=== PATIENT | female | born 1945 | race Caucasian/White ===

== ENCOUNTER 2016-12-11 13:09 | Emergency (ER) | payer MEDICARE ==
[~2016-12-11] VITALS: Ht 157.5 cm; Wt 120.2 kg
--- NOTE | 2016-12-11 13:20 | NUR ---
MARLEY FROM HOME C/O CHRONIC LOWER BACK PAIN. NOTED ELEVATED BP. TOOK PAIN MEDS AT HOME WITH NO RELIEF. AT . SAFETY AND COMFORT MEASURES PROVIDED. AWAITING FOR MD COBIAN. WILL MONITOR.
--- NOTE | 2016-12-11 14:20 | NUR ---
DR. CERVANTES AT FOR CATHLEENAL.
[2016-12-11] MEDS ORDERED: MORPHINE SULFATE INJ 2 MG/ML DISP.SYRIN IV ONE (15:00)
[2016-12-11] MEDS ORDERED: ONDANSETRON HCL/PF - ER 4 MG/2 ML VIAL IV ONE (15:00)
[2016-12-11] MEDS ORDERED: ONDANSETRON HCL/PF 4 MG/2 ML VIAL ONE ×2 (15:06→19:37)
[2016-12-11] MEDS ORDERED: MORPHINE SULFATE INJ 4 MG/ML DISP.SYRIN ONE (15:06)
--- NOTE | 2016-12-11 15:20 | NUR ---
IV ACCESS STARTED. INJECTOR ASSEMBLER AT FOR BLOOD DRAW. MEDICATED ORDERED.
[2016-12-11 15:32] LABS: BASOPHILS % (AUTO) 0.5 % (0.0-2.0); EOSINOPHILS % (AUTO) 0.5 % (0.0-6.0); HEMATOCRIT 41 % (33-45); HEMOGLOBIN 13.2 g/dL (11.5-14.8); LYMPHOCYTES # (AUTO) 0.9 /CMM (0.8-4.8); LYMPHOCYTES % (AUTO) 9.7 % (20.0-44.0); MEAN CORPUSCULAR HEMOGLOBIN 28 PG (26.0-33.0); MEAN CORPUSCULAR HGB CONC 33 g/dl (31.0-36.0); MEAN CORPUSCULAR VOLUME 87 fL (82-100); MONOCYTES # (AUTO) 0.3 /CMM (0.1-1.30); MONOCYTES % (AUTO) 2.9 % (2.0-12.0); NEUTROPHILS # (AUTO) 8.4 /CMM (1.8-8.9); NEUTROPHILS % (AUTO) 86.4 % (43.0-81.0); PLATELET COUNT (AUTO) 306 /CMM (150-450); RDW COEFFICIENT OF VARIATION 14.9 (11.5-15.0); RED BLOOD CELL COUNT(AUTO) 4.67 MIL/uL (4.0-5.2); WHITE BLOOD COUNT (AUTO) 9.6 K/uL (4.3-11.0)
[2016-12-11 15:44] LABS: CALCIUM, SERUM 9.9 mg/dL (8.5-10.1); CREATININE 0.8 mg/dL (0.6-1.3); POTASSIUM 4.1 mmol/L (3.5-5.1)
[2016-12-11 15:59] LABS: ALBUMIN 3.5 g/dL (3.4-5.0); BILIRUBIN,DIRECT 0.1 mg/dL (0.0-0.2); BILIRUBIN,TOTAL 0.3 mg/dL (0.2-1.0); TOTAL PROTEIN, SERUM 8.6 g/dL (6.4-8.2)
[2016-12-11] MEDS ORDERED: HYDROMORPHONE 1 MG/1 ML DISP.SYRIN ONE (16:26)
[2016-12-11] MEDS ORDERED: HYDROMORPHONE 1 MG/1 ML DISP.SYRIN IV ONE (16:30)
[2016-12-11 17:19] LABS: APPEARANCE,URINE Clear (CLEAR); BILIRUBIN,URINE Negative (NEGATIVE); BLOOD, URINE Trace-intact Ery/uL (NEGATIVE); COLOR,URINE Yellow (YELLOW); KETONES,URINE 40 (NEGATIVE); LEUKOCYTE ESTERASE ,URINE Negative (NEGATIVE); NITRITE, URINE Negative (NEGATIVE); PH,URINE 6.5 (5.0-8.0); PROTEIN,URINE 30 mg/dl (NEGATIVE); UGLUCOSE 500 MG/DL mg/dL (NEGATIVE); UROBILINOGEN,URINE 0.2 EU/dL (0.2)
[2016-12-11 17:21] LABS: BACTERIA,URINE Rare /HPF (None Seen); SQUAMOUS EPITHELIAL CELL,UR Few /HPF (None Seen); WBC,URINE NONE SEEN /HPF (0-3)
--- NOTE | 2016-12-11 17:29 | NUR ---
AT TO DISCUSS POC.
--- NOTE | 2016-12-11 17:50 | NUR ---
Patient discharged to home in stable condition. Written and verbal after care instructions given. PatientFAMILY verbalizes understanding of instruction.
--- NOTE | 2016-12-11 18:15 | NUR ---
PT REQUESTS AMBULANCE TO GO HOME. MADE AWARE OF AMBULANCE ETA OF 3.5 HOURS. OFFERED TO BE ASSISTED TO THE CAR BUT PT REFUSES, INSISTING THAT SHE IS HAVING A HARD TIME WALKING. OFFERED TO EB ASSISTED TO TRY TO WALK, STILL REFUSED. MADE AWARE.
--- NOTE | 2016-12-11 18:40 | NUR ---
BRIAN BEATTY, PT'S CELL PHONE NUMBER-
--- NOTE | 2016-12-11 19:27 | NUR ---
REPORT GIVEN TO AMBULANZ STAFF FOR TRANSPORT TO HOME.
--- NOTE | 2016-12-11 19:30 | NUR ---
PT STILL COMPLAINS OF PAIN- MD AWARE. NEW ORDERS CARRIED OUT.
[2016-12-11] MEDS ORDERED: MORPHINE SULFATE INJ 2 MG/ML DISP.SYRIN ONE (19:37)
--- NOTE | 2016-12-11 19:49 | NUR ---
IV removed. Catheter intact and site benign. Pressure and 4x4 applied to site. No bleeding noted.
--- NOTE | 2016-12-11 20:12 | NUR ---
STILL WAITING FOR MORPHINE AND ZOFRAN ORDERS TO BE ENDTERED ADMINISTERED BUT NOTED THAT IT IS NOT POPULATING ON THE MED LIST.
[2016-12-11 20:14] VITALS: BP 172/89
== END 2016-12-11 20:15 | disposition home or self-care (01) ==
LOC: ER 13:13
DX: G89.29 Other chronic pain (principal); M54.5 Low back pain; I10 Essential (primary) hypertension; E78.5 Hyperlipidemia, unspecified; E11.9 Type 2 diabetes mellitus without complications
CPT/HCPCS: 36415; 51701; 80048; 80076; 81001; 83690; 85025; 96374; 96375; 99284; A4606; J1170; J2270 ×2; J2405 ×2; 81000-TC; Z7610

== ENCOUNTER 2017-04-08 19:32 | Inpatient (IN) | payer MEDICARE ==
[~2017-04-08] VITALS: Ht 170.2 cm; Wt 151.0 kg
--- NOTE | 2017-04-08 19:44 | NUR ---
TO BED 5 BIB PARAMEDICS WITH FAMILY MEMBERS AT BEDSIDE C/O WORSENING SOB. PT DX'D WITH PNA TODAY. PT ALTERED, SOMNOLENT WITH POOR BREATHING EFFORT AND SHALLOW BREATHING, PT DIAPHORETIC, UNABLE TO FOLLOW SIMPLE COMMANDS. ER MD AT BEDSIDE TO EVAL PT WITH ORDERS RECEIVED. STARTED SL 18G TO L HAND, BLOOD DRAWN AND SENT TO LAB. RT AT BEDSIDE TO EVAL PT.
--- NOTE | 2017-04-08 19:46 | NUR ---
ER MD ORDER PT PREP PT FOR INTUBATION. RT AWARE.
[2017-04-08] MEDS ORDERED: NALOXONE PREFILLED SYRINGE 2 MG/2 ML SYRINGE ONE (19:54)
--- NOTE | 2017-04-08 19:55 | NUR ---
ER MD AT BEDSIDE FOR INTUBATION, RT, RN LIANNA, RN BUBBA, EMT AVELINA, EMT RENEE AT BEDSIDE
[2017-04-08 20:00] LABS: BASOPHILS # (AUTO) 0.1 /CMM (0.0-0.2); BASOPHILS % (AUTO) 0.8 % (0.0-2.0); EOSINOPHILS # (AUTO) 0.3 /CMM (0.0-0.7); EOSINOPHILS % (AUTO) 2.2 % (0.0-6.0); HEMATOCRIT 37 % (33-45); HEMOGLOBIN 12.5 g/dL (11.5-14.8); LYMPHOCYTES % (AUTO) 20.9 % (20.0-44.0); MEAN CORPUSCULAR HEMOGLOBIN 29 PG (26.0-33.0); MEAN CORPUSCULAR HGB CONC 33 g/dl (31.0-36.0); MEAN CORPUSCULAR VOLUME 88 fL (82-100); MONOCYTES # (AUTO) 0.7 /CMM (0.1-1.30); MONOCYTES % (AUTO) 4.8 % (2.0-12.0); NEUTROPHILS # (AUTO) 10.2 /CMM (1.8-8.9); NEUTROPHILS % (AUTO) 71.3 % (43.0-81.0); PLATELET COUNT (AUTO) 330 /CMM (150-450); RED BLOOD CELL COUNT(AUTO) 4.27 MIL/uL (4.0-5.2); WHITE BLOOD COUNT (AUTO) 14.3 K/uL (4.3-11.0)
--- NOTE | 2017-04-08 20:00 | NUR ---
PT INTUBATED BY MD CERVANTES, 7.5 ANGUILLAN, 22 AT THE LIP, VENT SETTINGS ARE TIDAL VOLUME 500, O2 100% RATE OF 18, PEEP OF 10, WILL CONTINUE TO MONITOR.
[2017-04-08] MEDS ORDERED: PROPOFOL 100 ML ONE ×2 (20:03→22:04)
[2017-04-08 20:19] VITALS: BP 158/94
--- NOTE | 2017-04-08 20:20 | NUR ---
NG TUBE INSERTED PER CERVANTES ORDER
--- NOTE | 2017-04-08 20:35 | NUR ---
SALAS PLACED PER MD ORDER, URINE COLLECTED AND SENT TO LAB
[2017-04-08 20:50] LABS: CALCIUM, SERUM 9.1 mg/dL (8.5-10.1); CARBON DIOXIDE 25 mmol/L (21-32); CHLORIDE 101 mmol/L (98-107); CREATININE 0.8 mg/dL (0.6-1.3); GLUCOSE 290 mg/dL (74-106); POTASSIUM 3.6 mmol/L (3.5-5.1); SODIUM SERUM 136 mmol/L (136-145); UREA NITROGEN, BLOOD 14 mg/dL (7-18)
[2017-04-08 20:59] LABS: ALANINE AMINOTRANSFERASE 32 U/L (12-78); ALBUMIN 3.3 g/dL (3.4-5.0); ALKALINE PHOSPHATASE 92 U/L (46-116); ASPARTATE AMINOTRANSFERASE 39 U/L (15-37); BILIRUBIN,DIRECT 0.1 mg/dL (0.0-0.2); BILIRUBIN,TOTAL 0.2 mg/dL (0.2-1.0); TOTAL PROTEIN, SERUM 8.2 g/dL (6.4-8.2)
[2017-04-08] MEDS ORDERED: VANCOMYCIN 1 GM in IV D5W 250 ML IV ONE (21:00)
[2017-04-08] MEDS ORDERED: IV NS 0.9% 1,000 ML BAG IV ONE (21:00)
[2017-04-08] MEDS ORDERED: CEFEPIME 1 GM in IV D5W 50 ML IV ONE (21:00)
[2017-04-08] MEDS ORDERED: ROCURONIUM BROMIDE 50 MG/5 ML ONE (21:09)
[2017-04-08 21:19] LABS: TROPONIN I 0.028 ng/mL (0.00-0.056)
[2017-04-08 21:29] LABS: INR 0.95 (0.85-1.15)
[2017-04-08] MEDS ORDERED: ROCURONIUM BROMIDE 50 MG/5 ML IV ONE ×2 (21:30)
[2017-04-08] MEDS ORDERED: ETOMIDATE 2 MG/ML VIAL IV ONE (21:30)
[2017-04-08] MEDS ORDERED: PROPOFOL 100 ML IV PRN ×2 (21:30→23:30)
[2017-04-08] MEDS ORDERED: CT SWABBABLE VALVE TRANS SET 1 EA INFUS.SET MC ONE (21:40)
[2017-04-08] MEDS ORDERED: IOHEXOL-350 100 ML VIAL IV ONE (21:40)
[2017-04-08] MEDS ORDERED: IV NS 0.9% 500 ML IV ONE (21:41)
--- NOTE | 2017-04-08 22:10 | NUR ---
BACK FROM CT
[2017-04-08 22:14] LABS: APPEARANCE,URINE CLEAR (CLEAR); BILIRUBIN,URINE NEGATIVE (NEGATIVE); BLOOD, URINE 1+ Ery/uL (NEGATIVE); COLOR,URINE YELLOW (YELLOW); KETONES,URINE TRACE (NEGATIVE); LEUKOCYTE ESTERASE ,URINE NEGATIVE (NEGATIVE); NITRITE, URINE NEGATIVE (NEGATIVE); PH,URINE 6.5 (5.0-8.0); PROTEIN,URINE 2+ mg/dl (NEGATIVE); UGLUCOSE 3+ mg/dL (NEGATIVE); UROBILINOGEN,URINE 0.2 EU/dL (0.2)
[2017-04-08] MEDS ORDERED: CEFEPIME 1 GM VIAL ONE (22:25)
[2017-04-08 22:29] LABS: ABG BASE EXCESS -4.3 mmol/L; ABG OXYGEN SATURATION 98.6 % (92.0-98.5); ABG PCO2 55.3 mmHg (35.0-45.0); ABG PH 7.245 (7.350-7.450); ABG PO2 196.7 mmHg (75.0-100.0); COHb 0.2 % (0.5-1.5); MetHb 0.7 % (0.0-1.5); O2Hb 97.7 % (94.0-97.0); PEEP,BG 10 cm H2O; SITE, ABG Right Radial; VENT MODE, BG A/C 18 500 100 +10; VT, ABG 500 mL
--- NOTE | 2017-04-08 22:48 | NUR ---
RN NOTES RECEIVED REPORT FROM PUBLIC SERVICE OFFICERBEATRICE DSOUZA
[2017-04-08 22:52] LABS: BACTERIA,URINE None seen /HPF (None Seen); SQUAMOUS EPITHELIAL CELL,UR Few /HPF (None Seen); WBC,URINE 0-2 /HPF (0-3)
[2017-04-08] MEDS ORDERED: VANCOMYCIN 1 GM VIAL ONE (22:52)
[2017-04-08] MEDS ORDERED: DEXTROSE 50%-WATER 50 ML DISP.SYRIN IV PRN (23:00)
--- NOTE | 2017-04-08 23:00 | NUR ---
RN NOTES PT ARRIVED FROM ER VIA GURNEY. SEDATED ON 60MCG/KG/MIN OF DIPRIVAN. INTUBATED AND ON VENT WITH SETTINGS AC 18, TV 500, FIO2 100%, PEEP 10, ETT 7.5/22@LIP, SATURATING WELL, NO S/S OF RESP DISTRESS. PT IS SINUS TACH ON THE MONITOR, HR 120'S. SKIN CHECKED, PICS TAKEN AND FILED. PT HAS A RIGHT NARE NGT CLAMPED, PLACEMENT VERIFIED VIA AUSCULTATION. SALAS CATH INTACT. LEFT HAND 18G AND RIGHT AC 18G WITH VANCO 1G RUNNING, BOTH LINES FLUHSED AND PATENT, NO S/S OF INFILTRATION/INFECTION, DRESSING CDI. BED LOW AND LOCKED, SIDERAILS UP, BILATERAL SOFT WRIST RESTRAINTS IN PLACE FOR SAFETY, BED ALARM ON. WILL MONITOR
[2017-04-08 23:05] VITALS: BP 126/70
[2017-04-08 23:15] VITALS: BP 126/70
[2017-04-08 23:30] VITALS: BP 150/80
[2017-04-08] MEDS ORDERED: ALBUTEROL FS 2.5 MG/0.5 ML VIAL.NEB NEB PRN (23:30)
[2017-04-08] MEDS ORDERED: NOREPINEPHRINE 16 MG in IV D5W 500 ML IV PRN (23:30)
[2017-04-08] MEDS ORDERED: IPRATROPIUM NEB FS 0.5 MG/2.5 ML AMPUL.NEB NEB PRN (23:30)
[2017-04-08] MEDS ORDERED: PIPERACILLIN /TAZOBACTAM 3.375 G VIAL IV ONE (23:36)
[2017-04-08] MEDS ORDERED: ENOXAPARIN SODIUM 100 MG/ML DISP.SYRIN SQ ONE (23:36)
[2017-04-08] MEDS ORDERED: ENOXAPARIN SODIUM 30 MG/0.3 ML DISP.SYRIN ONE (23:36)
[2017-04-08 23:45] VITALS: BP 132/71
[2017-04-08] MEDS: IV NS 0.9% 1,000 ML IV PRN (23:47)
[2017-04-08] MEDS: PIPERACILLIN /TAZOBACTAM 3.375 G in IV D5W 100 ML IV SCH (23:48)
[2017-04-08] MEDS: BLOOD SUGAR DIAGNOSTIC 1 EACH STRIP IN SCH (23:48)
--- NOTE | 2017-04-08 23:53 | NUR ---
RN NOTES CALLED DR PAL TO INFORM HIM OF ABG RESULTS S/P INTUBATION. PER MD, LOWER FIO2 TO 70% AND REPEAT ABG @ 0800 TOMORROW
[2017-04-08 23:56] VITALS: BP 132/71
[2017-04-09] VITALS (39 sets, daily range): BP systolic 98–161; BP diastolic 44–94
[2017-04-09] MEDS ORDERED: PHENYLEPHRINE 80 MG in IV NS 0.9% 250 ML IV PRN ×2
[2017-04-09] MEDS ORDERED: ENOXAPARIN SODIUM 60 MG/0.6 ML DISP.SYRIN SQ SCH
[2017-04-09] MEDS: PROPOFOL 100 ML IV PRN ×11 (00:32→23:20)
[2017-04-09] MEDS: ALBUTEROL FS 2.5 MG/0.5 ML VIAL.NEB NEB SCH ×4 (00:44→19:09)
[2017-04-09] MEDS: IPRATROPIUM NEB FS 0.5 MG/2.5 ML AMPUL.NEB NEB SCH ×4 (00:44→19:09)
[2017-04-09] MEDS ORDERED: GABA-534 PO (01:49)
[2017-04-09] MEDS ORDERED: TRAM50TA2 PO (01:49)
[2017-04-09] MEDS ORDERED: ATOR20TA PO (01:49)
[2017-04-09] MEDS ORDERED: LEVO137T24 PO (01:49)
[2017-04-09] MEDS ORDERED: ESOM40CA PO (01:49)
[2017-04-09] MEDS ORDERED: LOSA1TAB36 PO (01:49)
[2017-04-09] MEDS ORDERED: PIPERACILLIN /TAZOBACTAM 3.375 G VIAL IV ONE (04:55)
[2017-04-09] MEDS: BLOOD SUGAR DIAGNOSTIC 1 EACH STRIP IN SCH ×6 (04:59→20:03)
[2017-04-09] MEDS: PIPERACILLIN /TAZOBACTAM 3.375 G in IV D5W 100 ML IV SCH (05:00)
[2017-04-09] MEDS: INSULIN REGULAR, HUMAN 100 UNIT/ML 3 ML VIAL SQ PRN ×6 (05:01→20:20)
[2017-04-09 05:17] LABS: BASOPHILS % (AUTO) 0.2 % (0.0-2.0); EOSINOPHILS % (AUTO) 0.2 % (0.0-6.0); HEMATOCRIT 35 % (33-45); HEMOGLOBIN 11.8 g/dL (11.5-14.8); LYMPHOCYTES # (AUTO) 0.6 /CMM (0.8-4.8); MEAN CORPUSCULAR HEMOGLOBIN 30 PG (26.0-33.0); MEAN CORPUSCULAR HGB CONC 34 g/dl (31.0-36.0); MEAN CORPUSCULAR VOLUME 89 fL (82-100); MONOCYTES # (AUTO) 0.9 /CMM (0.1-1.30); MONOCYTES % (AUTO) 7.8 % (2.0-12.0); NEUTROPHILS # (AUTO) 9.7 /CMM (1.8-8.9); NEUTROPHILS % (AUTO) 86.8 % (43.0-81.0); PLATELET COUNT (AUTO) 216 /CMM (150-450); RDW COEFFICIENT OF VARIATION 14.8 (11.5-15.0); RED BLOOD CELL COUNT(AUTO) 3.94 MIL/uL (4.0-5.2); WHITE BLOOD COUNT (AUTO) 11.1 K/uL (4.3-11.0)
--- NOTE | 2017-04-09 05:17 | NUR ---
PT REC'D ORALLY INTUBATED WITH 7.5 @ 25 ON THE LIP. PT ON MECH VENT WITH NOTED SETTINGS, ALARMS ARE SET AND FUNCTIONAL. NO DISTRESS NOTED AT THIS TIME. B/S BILATERALLY EQUAL. SX'D SMALL AMT. OF WHITE/YELLOW SECRETIONS, PT. REMAINS STABLE. AMBU BAG AT BEDSIDE. VENT PLUGGED INTO RED OUTLET. WILL CONTINUE TO MONITOR. Addendum: 04/09/17 at 0521 by ELVER DESOUZA RT Amended: Links added.
[2017-04-09 05:48] LABS: CALCIUM, SERUM 8.7 mg/dL (8.5-10.1); CREATININE 0.7 mg/dL (0.6-1.3); POTASSIUM 4.7 mmol/L (3.5-5.1)
[2017-04-09] MEDS: ACETAMINOPHEN 650 MG/20.3 ML UDC NG PRN ×3 (05:49→21:54)
[2017-04-09 06:10] LABS: TROPONIN I 0.489 ng/mL (0.00-0.056)
--- NOTE | 2017-04-09 06:30 | NUR ---
RN CLOSING NOTES PT REMAINS STABLE OF THE MOMENT. ALL DUE MEDS GIVEN, AM CARE PROVIDED. WILL ENDORSE NEELIMA TO AM RN
--- NOTE | 2017-04-09 07:45 | NUR ---
ICU/RN - Initial Notes Received pt sedated, orally intubated to mechanical ventilator with settings as ordered. On tele reading ST 120s. NGT patent and intact, kept clamped, NPO as ordered. IVF infusing well. Arellano catheter intact draining urine to gravity. Pt noted to be afebrile with temp 102.2F. Pt recently received Tylenol. Cooling measures in place. Safety and comfort measures in place. Will continue to monitor pt closely.
[2017-04-09] MEDS ORDERED: ETOMIDATE 2 MG/ML VIAL IV ONE (08:04)
[2017-04-09] MEDS ORDERED: FEE PK DOSING 1 MIN EA MC ONE (08:05)
[2017-04-09] MEDS: ASPIRIN 81 MG TAB.CHEW PO SCH (08:11)
[2017-04-09] MEDS: PANTOPRAZOLE 40 MG VIAL IV SCH (08:11)
[2017-04-09 08:29] LABS: MAGNESIUM 1.5 mg/dL (1.8-2.4)
--- NOTE | 2017-04-09 08:30 | NUR ---
ICU/RN - Notes Diprivan gtt titrated down for sedation vacation. Pt opens eyes and able to follows commands. Pt placed back on sedation to ensure comfort while intubated, as pt is gagging biting down ET tube, and as there are no plans for mechanical ventilator weaning today.
[2017-04-09 08:32] LABS: THYROID STIMULATING HORMONE 0.732 uIU/mL (0.358-3.74)
--- NOTE | 2017-04-09 08:47 | NUR ---
ekg results reported to patient's nurse (Tyree).
[2017-04-09 09:26] LABS: ABG BASE EXCESS 0.3 mmol/L; ABG OXYGEN SATURATION 98.3 % (92.0-98.5); ABG PCO2 45.3 mmHg (35.0-45.0); ABG PH 7.374 (7.350-7.450); ABG PO2 144.3 mmHg (75.0-100.0); AaDO2 306.1 mmHg; MetHb 0.6 % (0.0-1.5); O2Hb 97.7 % (94.0-97.0); PEEP,BG 10 cm H2O; SITE, ABG Right Radial; VT, ABG 500 mL
[2017-04-09] MEDS: IV NS 0.9% 1,000 ML IV PRN ×2 (10:19→21:24)
[2017-04-09] MEDS: VANCOMYCIN 1 GM in IV D5W 250 ML IV SCH ×2 (10:23→22:13)
[2017-04-09] MEDS: Magnesium 1GM/D5W 100ML PREMIX 100 ML IV SCH ×2 (11:19→12:22)
[2017-04-09] MEDS: PIPERACILLIN /TAZOBACTAM 3.375 G in IV NS 0.9% 50 ML IV SCH ×3 (11:41→23:20)
--- NOTE | 2017-04-09 12:15 | NUR ---
ICU/RN - Notes Pt's family at bedside, updates provided.
[2017-04-09] MEDS ORDERED: TRAMADOL HCL 50 MG TABLET PO PRN (13:00)
[2017-04-09] MEDS: GABAPENTIN 300 MG CAPSULE PO SCH ×2 (13:02→16:11)
[2017-04-09] MEDS: LEVOTHYROXINE SODIUM 137 MCG TABLET PO SCH (13:38)
--- NOTE | 2017-04-09 16:00 | NUR ---
ICU/RN - Notes Pt continues to be febrile with temp 101F. Cooling measures in place. Dr Membreno made aware.
[2017-04-09] MEDS ORDERED: GLYTROL 1,000 ML BAG GT PRN (16:30)
--- NOTE | 2017-04-09 18:00 | NUR ---
ICU/RN - Notes Tube feeding started as ordered, will monitor for residuals. Temperature improved at 99.8F
--- NOTE | 2017-04-09 19:10 | NUR ---
RN INITIAL NOTES RECEIVED PT SEDATED ON BED WITH DIPRIVAN @ 60MCG/KG/MIN. INTUBATED AND ON VENT WITH SETTINGS AC 18, TV 500, FIO2 40%, PEEP 10, SATURATING WELL, NO S/S OF RESP DISTRESS. CURRENTLY SR ON THE MONITOR, HR 80'S. RIGHT NARE NGT ON GLYTROL FEEDING @ 30MLS/HR, NO RESIDUALS, TOLERATING WELL. SALAS CATH INTACT. LEFT HAND 18G, RIGHT AC 18G, AND LEFT UPPER ARM MIDLINE WITH NS @ 100MLS/HR, ALL FLUSHED AND PATENT, NO S/S OF INFILTRATION/INFECTION, DRESSINGS CDI. BED LOW AND LOCKED, SIDERAILS UP, BED ALARM ON. WILL CONTINUE TO MONITOR
[2017-04-09] MEDS: ENOXAPARIN SODIUM 40 MG/0.4 ML DISP.SYRIN SQ SCH (20:20)
--- NOTE | 2017-04-09 21:20 | NUR ---
PT RECEIVED ON VENT VIA CHARTED SETTINGS AND ROUTE. ALARMS ARE SET AND FUNCTIONAL. DISCONNECT ALARMS CHECKED. PT TOLERATING VENT SETTINGS. AMBU BAG AT THE BEDSIDE. VENT PLUGGED INTO RED OUTLET. Addendum: 04/09/17 at 2121 by YARIEL TITUS RT Amended: Links added.
[2017-04-10] VITALS (37 sets, daily range): BP systolic 88–160; BP diastolic 45–79
[2017-04-10] MEDS: BLOOD SUGAR DIAGNOSTIC 1 EACH STRIP IN SCH ×6 (00:51→20:53)
[2017-04-10] MEDS: INSULIN REGULAR, HUMAN 100 UNIT/ML 3 ML VIAL SQ PRN ×6 (00:52→20:52)
[2017-04-10] MEDS: PROPOFOL 100 ML IV PRN ×10 (01:43→21:34)
[2017-04-10] MEDS: IPRATROPIUM NEB FS 0.5 MG/2.5 ML AMPUL.NEB NEB SCH ×4 (01:49→19:31)
[2017-04-10] MEDS: ALBUTEROL FS 2.5 MG/0.5 ML VIAL.NEB NEB SCH ×4 (01:49→19:31)
[2017-04-10] MEDS: PIPERACILLIN /TAZOBACTAM 3.375 G in IV NS 0.9% 50 ML IV SCH ×4 (05:01→23:15)
[2017-04-10] MEDS: ACETAMINOPHEN 650 MG/20.3 ML UDC NG PRN ×2 (05:01→17:38)
[2017-04-10 05:08] LABS: BASOPHILS % (AUTO) 0.2 % (0.0-2.0); EOSINOPHILS % (AUTO) 0.4 % (0.0-6.0); HEMATOCRIT 30 % (33-45); HEMOGLOBIN 10.4 g/dL (11.5-14.8); LYMPHOCYTES # (AUTO) 0.9 /CMM (0.8-4.8); LYMPHOCYTES % (AUTO) 9.4 % (20.0-44.0); MEAN CORPUSCULAR HEMOGLOBIN 30 PG (26.0-33.0); MEAN CORPUSCULAR HGB CONC 34 g/dl (31.0-36.0); MEAN CORPUSCULAR VOLUME 88 fL (82-100); MONOCYTES # (AUTO) 0.5 /CMM (0.1-1.30); MONOCYTES % (AUTO) 5.6 % (2.0-12.0); NEUTROPHILS # (AUTO) 8.2 /CMM (1.8-8.9); NEUTROPHILS % (AUTO) 84.4 % (43.0-81.0); PLATELET COUNT (AUTO) 200 /CMM (150-450); RDW COEFFICIENT OF VARIATION 14.7 (11.5-15.0); RED BLOOD CELL COUNT(AUTO) 3.42 MIL/uL (4.0-5.2); WHITE BLOOD COUNT (AUTO) 9.7 K/uL (4.3-11.0)
[2017-04-10 05:28] LABS: TROPONIN I 0.264 ng/mL (0.00-0.056)
[2017-04-10 05:35] LABS: ALBUMIN 2.2 g/dL (3.4-5.0); BILIRUBIN,TOTAL 0.3 mg/dL (0.2-1.0); CALCIUM, SERUM 8.7 mg/dL (8.5-10.1); CREATININE 0.6 mg/dL (0.6-1.3); MAGNESIUM 2.1 mg/dL (1.8-2.4); PHOSPHORUS 2.9 mg/dL (2.5-4.9); POTASSIUM 3.5 mmol/L (3.5-5.1); TOTAL PROTEIN, SERUM 6.4 g/dL (6.4-8.2)
--- NOTE | 2017-04-10 06:10 | NUR ---
RN CLOSING NOTES PT REMAINS STABLE OF THE MOMENT. ALL DUE MEDS GIVEN, AM CARE PROVIDED. WILL ENDORSE NEELIMA TO AM RN
--- NOTE | 2017-04-10 07:35 | NUR ---
RT PT RECEIVED ORALLY INTUBATED WITH A 7.5 ETT SECURED AT 25CM AT THE LIP LINE. PT IS ON THE VENT WITH NOTED SETTINGS. PT IS CURRENTLY SEDATED AT THIS TIME. VENT ALARMS ARE SET AND AUDIBLE WITH BVM BY BEDSIDE. CAR SEAT UPHOLSTERER CUFF PRESSURE NOTED. NO RESPIRATORY DISTRESS NOTED AT THIS TIME, WILL CONTINUE TO MONITOR. Addendum: 04/10/17 at 0943 by JOVANI NAVA RT Amended: Links added.
--- NOTE | 2017-04-10 07:45 | NUR ---
ICU/RN - Initial Notes Received pt sedated, orally intubated to mechanical ventilator with settings as ordered. On tele reading SR 80s. NGT patent and intact, tolerating tube feeding well. IVF infusing well. Arellano catheter intact draining urine to gravity. Safety and comfort measures in place. Will continue to monitor pt closely.
[2017-04-10] MEDS: GABAPENTIN 300 MG CAPSULE PO SCH ×3 (08:15→17:25)
[2017-04-10] MEDS: ASPIRIN 81 MG TAB.CHEW PO SCH (08:15)
[2017-04-10] MEDS: PANTOPRAZOLE 40 MG VIAL IV SCH (08:16)
[2017-04-10] MEDS: LEVOTHYROXINE SODIUM 137 MCG TABLET PO SCH (08:54)
[2017-04-10 09:28] LABS: ABG BASE EXCESS 1.7 mmol/L; ABG OXYGEN SATURATION 96.7 % (92.0-98.5); ABG PCO2 40.5 mmHg (35.0-45.0); ABG PH 7.428 (7.350-7.450); ABG PO2 96.2 mmHg (75.0-100.0); AaDO2 142.4 mmHg; COHb 0.3 % (0.5-1.5); MetHb 0.5 % (0.0-1.5); O2Hb 95.9 % (94.0-97.0); PEEP,BG 10 cm H2O; SITE, ABG Left Radial; VT, ABG 500 mL
[2017-04-10] MEDS: IV NS 0.9% 1,000 ML IV PRN (10:22)
[2017-04-10] MEDS: VANCOMYCIN 1 GM in IV D5W 250 ML IV SCH ×2 (10:57→19:52)
--- NOTE | 2017-04-10 13:00 | NUR ---
ICU/RN - Notes Pt's family at bedside, updates provided.
[2017-04-10] MEDS: SOD FERRIC GLUC 125 MG in IV NS 0.9% 100 ML IV SCH (14:29)
[2017-04-10] MEDS: PROSOURCE / PROSTAT (PYXIS) 30 ML UDC NG SCH (17:24)
[2017-04-10] MEDS: GLYTROL 1,000 ML BAG GT PRN (17:32)
[2017-04-10] MEDS ORDERED: Z GUARD REMEDY 2 OZ OINT TP PRN (18:30)
--- NOTE | 2017-04-10 18:57 | NUR ---
ICU/RN - Notes Pt appears comfortable, sedated on mechanical ventilator in no acute distress.
--- NOTE | 2017-04-10 20:33 | NUR ---
received pt from day shift, sedated on Diprivan at 60mcg, SR, on the vent, lungs partially congested, no edema, NG to feeding tolerates well, f/c good output, restraints on, v/s stable, no pain, pt turned and repositioned.
[2017-04-10] MEDS: ENOXAPARIN SODIUM 40 MG/0.4 ML DISP.SYRIN SQ SCH (20:53)
[2017-04-11] VITALS (70 sets, daily range): BP systolic 127–177; BP diastolic 62–95
[2017-04-11] MEDS: PROPOFOL 100 ML IV PRN ×9 (00:07→22:23)
[2017-04-11] MEDS: INSULIN REGULAR, HUMAN 100 UNIT/ML 3 ML VIAL SQ PRN ×6 (00:16→20:58)
[2017-04-11] MEDS: BLOOD SUGAR DIAGNOSTIC 1 EACH STRIP IN SCH ×6 (00:16→20:58)
--- NOTE | 2017-04-11 00:37 | NUR ---
pt is resting in the bed, sedated on Diprivan at 50mcg, tolerates feeding, v/s stable, no pain, pt turned and repositioned q2hrs.
[2017-04-11] MEDS: IV NS 0.9% 1,000 ML IV PRN (01:34)
[2017-04-11] MEDS: ALBUTEROL FS 2.5 MG/0.5 ML VIAL.NEB NEB SCH ×4 (01:52→20:09)
[2017-04-11] MEDS: IPRATROPIUM NEB FS 0.5 MG/2.5 ML AMPUL.NEB NEB SCH ×4 (01:52→20:09)
[2017-04-11] MEDS: ACETAMINOPHEN 650 MG/20.3 ML UDC NG PRN ×2 (02:58→16:29)
[2017-04-11] MEDS: VANCOMYCIN 1 GM in IV D5W 250 ML IV SCH ×2 (03:44→11:42)
--- NOTE | 2017-04-11 04:25 | NUR ---
pt is resting in the bed, no acute distress overnight, sedated on Diprivan at 50mcg, SR, v/s stable, no pain, tolerates feeding, good urine output, pt cleaned, changed and repositioned q2hrs.
[2017-04-11] MEDS: PIPERACILLIN /TAZOBACTAM 3.375 G in IV NS 0.9% 50 ML IV SCH ×4 (05:00→23:16)
[2017-04-11 05:22] LABS: BASOPHILS % (AUTO) 0.4 % (0.0-2.0); EOSINOPHILS # (AUTO) 0.1 /CMM (0.0-0.7); EOSINOPHILS % (AUTO) 1.1 % (0.0-6.0); HEMATOCRIT 30 % (33-45); HEMOGLOBIN 10.3 g/dL (11.5-14.8); LYMPHOCYTES # (AUTO) 0.5 /CMM (0.8-4.8); LYMPHOCYTES % (AUTO) 7.1 % (20.0-44.0); MEAN CORPUSCULAR HEMOGLOBIN 30 PG (26.0-33.0); MEAN CORPUSCULAR HGB CONC 34 g/dl (31.0-36.0); MEAN CORPUSCULAR VOLUME 88 fL (82-100); MONOCYTES # (AUTO) 0.3 /CMM (0.1-1.30); NEUTROPHILS # (AUTO) 5.8 /CMM (1.8-8.9); NEUTROPHILS % (AUTO) 86.4 % (43.0-81.0); PLATELET COUNT (AUTO) 204 /CMM (150-450); RDW COEFFICIENT OF VARIATION 15.2 (11.5-15.0); RED BLOOD CELL COUNT(AUTO) 3.43 MIL/uL (4.0-5.2); WHITE BLOOD COUNT (AUTO) 6.7 K/uL (4.3-11.0)
[2017-04-11 05:46] LABS: CALCIUM, SERUM 8.7 mg/dL (8.5-10.1); CREATININE 0.7 mg/dL (0.6-1.3); POTASSIUM 3.4 mmol/L (3.5-5.1)
--- NOTE | 2017-04-11 07:05 | NUR ---
RN NOTES RECEIVED PT ON BED, SEDATED , INTUBATED , TOLERATING CURRENT VENT SETTING WELL, ON TELE SR-ST, SALAS DRAINING TO GRAVITY WITH GOOD URINE OUTPUT , TF GLYTROL AT 60CC/HR RUNNING VIA NG TUBE, NO RESIDUAL NOTED, DIPRIVAN AT 50MCG/KG/MIN RUNNING VIA L UPPER ARM MIDLINE , SITE CDI, ROLAN WRIST RESTRAINTS ON FOR PT SAFETY, BED LOCKED AND IN LOWEST POSITION , WILL CONTINUE TO MONITOR CLSOELY.
--- NOTE | 2017-04-11 07:36 | NUR ---
Intubated pt received on mechanical vent. Pt 7.5 ETT is secured at 25cm@ lip. Vent is plugged into a red outlet, alarms are set and audible, and BVM is at bedside. Addendum: 04/11/17 at 0737 by MADDIE MITCHELL RT Amended: Links added.
[2017-04-11] MEDS: PANTOPRAZOLE 40 MG VIAL IV SCH (08:01)
[2017-04-11] MEDS: ASPIRIN 81 MG TAB.CHEW PO SCH (08:01)
[2017-04-11] MEDS: LEVOTHYROXINE SODIUM 137 MCG TABLET PO SCH (08:01)
[2017-04-11] MEDS: GABAPENTIN 300 MG CAPSULE PO SCH ×3 (08:01→16:29)
[2017-04-11] MEDS: PROSOURCE / PROSTAT (PYXIS) 30 ML UDC NG SCH ×2 (08:02→16:30)
--- NOTE | 2017-04-11 10:00 | NUR ---
BEATRICE PATEL NOTIFIED REGARDING HIGH BLOOD PRESSURE , CONTINUE TO MONITOR .
--- NOTE | 2017-04-11 10:00 | NUR ---
RN NOTES PT WAS UNABLE TO TOLERATE EXTUBATION , PT BACK ON VENT AC MODE PER DR PAL ORDER , CONTINUE SEDATION AND MONITOR PT GLORIA.
[2017-04-11] MEDS ORDERED: POTASSIUM CHLORIDE 20 MEQ POWDER PACKET NG SCH (11:00)
[2017-04-11] MEDS ORDERED: LISINOPRIL (10MG) 10 MG TABLET PO SCH (11:00)
[2017-04-11] MEDS: LISINOPRIL (20MG) 20 MG TABLET PO SCH ×2 (12:48→20:51)
--- NOTE | 2017-04-11 13:00 | NUR ---
RN NOTS ETT SUCTIONING DONE , TOLERATING TF WELL, FAMILY AT THE BEDSIDE, CONTINUE MONITOR .
[2017-04-11] MEDS: GLYTROL 1,000 ML BAG GT PRN (14:31)
[2017-04-11] MEDS: SOD FERRIC GLUC 125 MG in IV NS 0.9% 100 ML IV SCH (14:49)
--- NOTE | 2017-04-11 16:00 | NUR ---
RN NOTES PT RESTLESS, TRIES TO PULL ON HER LINES, DIPRIVAN INCREASED TO 60MCG/KG/MIN AT THIS TIME . CONTINUE TO MONITOR .
[2017-04-11] MEDS: LACTOBACILLUS RHAMNOSUS GG 1 EACH CAP.SPRINK GT SCH (16:29)
[2017-04-11] MEDS: VANCOMYCIN 1.25 GM in IV D5W 500 ML IV SCH (18:07)
--- NOTE | 2017-04-11 18:46 | NUR ---
RN NOTES PT AT REST , TOLERATING VENT SETTING WELL, ON TELE SR , SALAS DRAINING TO GRAVITY , DIPRIVAN AT 60MCG/KG/ MIN AT THIS TIME , GLYTROL AT 60CC/HR RUNNING VIA NG TUBE , NO RESIDUAL NOTED, SR UP x3, BED LOCKED AND IN LOWEST POSITION , WILL ENDORSE TO TOOL SHAPER SET UP OPERATOR NURSE FOR NEELIMA
--- NOTE | 2017-04-11 20:35 | NUR ---
received pt from day shift, sedated on Diprivan at 60mcg, SR, on the vent, lungs partially congested, no edema, NG to feeding tolerates well, f/c good urine output, v/s stable. no pain, pt turned and repositioned.
[2017-04-11] MEDS: ENOXAPARIN SODIUM 40 MG/0.4 ML DISP.SYRIN SQ SCH (20:56)
--- NOTE | 2017-04-11 21:58 | NUR ---
PT RECEIVED INTUBATED WITH 7.5 ETT ON ESPRIT VENT. NO RESP DISTRESS NOTED. PT TOLERATING VENT SETTINGS. SX'D AND LAVAGED FOR MOD AMT OF THICK YELLOW SECRETIONS. VENT ALARMS SET AND AUDIBLE. AMBU BAG AT BEDSIDE. VENT PLUGGED INTO RED OUTLET. WILL CONTINUE TO MONITOR. Addendum: 04/11/17 at 2200 by YANN ANDERS RT Amended: Links added.
[2017-04-12] VITALS (41 sets, daily range): BP systolic 119–148; BP diastolic 51–72
--- NOTE | 2017-04-12 00:24 | NUR ---
pt is resting in the bed, sedated on diprivan at 60mcg, v/s stable, no pain, pt turned and repositioned q2hrs.
[2017-04-12] MEDS: BLOOD SUGAR DIAGNOSTIC 1 EACH STRIP IN SCH ×7 (00:33→23:59)
[2017-04-12] MEDS: INSULIN REGULAR, HUMAN 100 UNIT/ML 3 ML VIAL SQ PRN ×6 (00:33→23:57)
[2017-04-12] MEDS: PROPOFOL 100 ML IV PRN ×10 (00:37→22:17)
[2017-04-12] MEDS: VANCOMYCIN 1.25 GM in IV D5W 500 ML IV SCH ×3 (01:09→17:19)
[2017-04-12] MEDS: IPRATROPIUM NEB FS 0.5 MG/2.5 ML AMPUL.NEB NEB SCH ×4 (01:22→19:22)
[2017-04-12] MEDS: ALBUTEROL FS 2.5 MG/0.5 ML VIAL.NEB NEB SCH ×4 (01:22→19:22)
--- NOTE | 2017-04-12 04:25 | NUR ---
pt is resting in the bed, no acute distress overnight, sedated on Diprivan at 60mcg, SR, tolerates feeding, good urine output, v/s stable, no pain, pt turned and repositioned q2hrs.
[2017-04-12 04:42] LABS: BASOPHILS % (AUTO) 0.1 % (0.0-2.0); EOSINOPHILS % (AUTO) 0.5 % (0.0-6.0); HEMATOCRIT 31 % (33-45); HEMOGLOBIN 10.4 g/dL (11.5-14.8); LYMPHOCYTES # (AUTO) 0.6 /CMM (0.8-4.8); LYMPHOCYTES % (AUTO) 11.5 % (20.0-44.0); MEAN CORPUSCULAR HEMOGLOBIN 30 PG (26.0-33.0); MEAN CORPUSCULAR HGB CONC 34 g/dl (31.0-36.0); MEAN CORPUSCULAR VOLUME 88 fL (82-100); MONOCYTES # (AUTO) 0.5 /CMM (0.1-1.30); MONOCYTES % (AUTO) 9.8 % (2.0-12.0); NEUTROPHILS % (AUTO) 78.1 % (43.0-81.0); PLATELET COUNT (AUTO) 225 /CMM (150-450); RDW COEFFICIENT OF VARIATION 15.1 (11.5-15.0); RED BLOOD CELL COUNT(AUTO) 3.49 MIL/uL (4.0-5.2); WHITE BLOOD COUNT (AUTO) 5.2 K/uL (4.3-11.0)
[2017-04-12 05:05] LABS: CALCIUM, SERUM 8.9 mg/dL (8.5-10.1); CREATININE 0.6 mg/dL (0.6-1.3); POTASSIUM 3.2 mmol/L (3.5-5.1)
[2017-04-12] MEDS: PIPERACILLIN /TAZOBACTAM 3.375 G in IV NS 0.9% 50 ML IV SCH ×4 (05:09→23:50)
--- NOTE | 2017-04-12 07:50 | NUR ---
ELECTRIC SWITCH REPAIRER: pt.is sedated with 60 mcg/kg/m Diprivan gtt, reactive by light pain/touch, wean failed yesterday, was reactive with Diprivan dose below 50 mcg/kg/m by report, SR, SBP over 100, O2 sat. over 96%, FiO2 40%, BS 200-300/will speak with MD, NGTF residual is high, started LCS: got 1200ml stomach yellow residual, NGT position is positive, keep HOB over 40, K+3.2/will s/w MD, T100.2/will start cooling measures
[2017-04-12] MEDS: PANTOPRAZOLE 40 MG VIAL IV SCH (08:15)
[2017-04-12] MEDS: LEVOTHYROXINE SODIUM 137 MCG TABLET PO SCH (08:15)
--- NOTE | 2017-04-12 08:15 | NUR ---
CLINICAL TRIAL ASSOCIATE: is in room, updated with all above, ordered: KUB stat, d/c NGTF, NPO, RD was notified, charge nurse updated
[2017-04-12 08:32] LABS: ABG BASE EXCESS 2.4 mmol/L; ABG OXYGEN SATURATION 93.7 % (92.0-98.5); ABG PH 7.434 (7.350-7.450); ABG PO2 67.3 mmHg (75.0-100.0); AaDO2 170.8 mmHg; COHb 0.3 % (0.5-1.5); MetHb 0.3 % (0.0-1.5); O2Hb 93.1 % (94.0-97.0); PEEP,BG 5 cm H2O; SITE, ABG Right Radial; VENT MODE, BG AC 18 500 +5 40%; VT, ABG 500 mL
--- NOTE | 2017-04-12 08:45 | NUR ---
HEEL LAYER: pH 7.43, pO2 67, pCO2 41, RT increased FiO2 to 50%, hold sedation vacation
--- NOTE | 2017-04-12 08:45 | NUR ---
CHURCH HISTORY TEACHER: is in room, updated with pt.current condition, VS, sedation level, I/O, BS, 1300ml NGT LCS, wean failed before, orders, labs, ordered: KCl IV 20meq, no Lantus for now/NPO status was started, see new orders
[2017-04-12] MEDS: LISINOPRIL (20MG) 20 MG TABLET PO SCH (08:51)
[2017-04-12] MEDS: LACTOBACILLUS RHAMNOSUS GG 1 EACH CAP.SPRINK GT SCH (08:51)
[2017-04-12] MEDS: ACETAMINOPHEN 650 MG/20.3 ML UDC NG PRN (08:52)
[2017-04-12] MEDS: ASPIRIN 81 MG TAB.CHEW PO SCH (08:52)
[2017-04-12] MEDS: GABAPENTIN 300 MG CAPSULE PO SCH (08:52)
[2017-04-12] MEDS: PROSOURCE / PROSTAT (PYXIS) 30 ML UDC NG SCH ×2 (08:52→09:00)
[2017-04-12] MEDS: POTASSIUM CL. PREMIX PERIPHER. 50 ML IV SCH ×2 (09:24→10:07)
--- NOTE | 2017-04-12 10:45 | NUR ---
CLINICAL PROGRAMMER: is in room, notified re pt.VS, O2sat., ABG, vent setting, 1400ml NGT LIS, I/O, T100.2, KUB
--- NOTE | 2017-04-12 12:15 | NUR ---
DELIVERY TECHNICIAN: pt. is sedated well, rest now, can open eyes for seconds by light pain stimuli or suction, VSS, NGT LIS 100ml yellow drain, pt.family is in room, notified re pt.status, VS, I/O, sedation, orders, NGT LIS, BS, POC
[2017-04-12] MEDS ORDERED: NITROGLYCERIN PACKET 1 GM PACKET TOP PRN (13:00)
[2017-04-12] MEDS: SOD FERRIC GLUC 125 MG in IV NS 0.9% 100 ML IV SCH (14:53)
[2017-04-12] MEDS ORDERED: DEXTROSE 50%-WATER 50 ML DISP.SYRIN IV PRN (17:00)
--- NOTE | 2017-04-12 19:59 | NUR ---
ICU/RN RECEIVED PT ON VENT VIA ORAL ETT.ON DIPRIVAN DRIP AT 60 MCG/KG/MIN.PT OPENS EYES TO TOUCH.
[2017-04-12] MEDS: ENOXAPARIN SODIUM 40 MG/0.4 ML DISP.SYRIN SQ SCH (20:57)
--- NOTE | 2017-04-12 21:15 | NUR ---
ICU/CLINICAL INTERVIEWER AT BED SIDE VISITING,UPDATED W/ PT'S CONDITION.SALEM SUMP TUBE TO LIS DRAINING PLAZA-COLORED TO BROWNISH DRAINAGE.
[2017-04-12] MEDS ORDERED: ACETAMINOPHEN 650 MG/SUPP.RECT RC PRN (23:00)
[2017-04-13] VITALS (47 sets, daily range): BP systolic 94–145; BP diastolic 40–79
[2017-04-13] MEDS: INSULIN REGULAR, HUMAN 100 UNIT/ML 3 ML VIAL SQ PRN ×4 (00:22→17:43)
[2017-04-13] MEDS: ALBUTEROL FS 2.5 MG/0.5 ML VIAL.NEB NEB SCH ×4 (00:50→19:38)
[2017-04-13] MEDS: IPRATROPIUM NEB FS 0.5 MG/2.5 ML AMPUL.NEB NEB SCH ×4 (00:50→19:38)
[2017-04-13] MEDS: PROPOFOL 100 ML IV PRN ×10 (00:59→21:58)
[2017-04-13] MEDS: VANCOMYCIN 1.25 GM in IV D5W 500 ML IV SCH ×3 (02:04→17:40)
[2017-04-13 05:39] LABS: BASOPHILS % (AUTO) 0.5 % (0.0-2.0); EOSINOPHILS # (AUTO) 0.1 /CMM (0.0-0.7); EOSINOPHILS % (AUTO) 1.2 % (0.0-6.0); HEMATOCRIT 30 % (33-45); HEMOGLOBIN 10.2 g/dL (11.5-14.8); LYMPHOCYTES # (AUTO) 1.2 /CMM (0.8-4.8); LYMPHOCYTES % (AUTO) 22.1 % (20.0-44.0); MEAN CORPUSCULAR HEMOGLOBIN 30 PG (26.0-33.0); MEAN CORPUSCULAR HGB CONC 34 g/dl (31.0-36.0); MEAN CORPUSCULAR VOLUME 87 fL (82-100); MONOCYTES # (AUTO) 0.6 /CMM (0.1-1.30); MONOCYTES % (AUTO) 11.6 % (2.0-12.0); NEUTROPHILS # (AUTO) 3.5 /CMM (1.8-8.9); NEUTROPHILS % (AUTO) 64.6 % (43.0-81.0); PLATELET COUNT (AUTO) 230 /CMM (150-450); RED BLOOD CELL COUNT(AUTO) 3.45 MIL/uL (4.0-5.2); WHITE BLOOD COUNT (AUTO) 5.4 K/uL (4.3-11.0)
[2017-04-13] MEDS: PIPERACILLIN /TAZOBACTAM 3.375 G in IV NS 0.9% 50 ML IV SCH ×3 (05:41→17:40)
[2017-04-13 05:52] LABS: CALCIUM, SERUM 8.4 mg/dL (8.5-10.1); CREATININE 0.7 mg/dL (0.6-1.3); MAGNESIUM 1.9 mg/dL (1.8-2.4); POTASSIUM 3.3 mmol/L (3.5-5.1)
--- NOTE | 2017-04-13 05:55 | NUR ---
ICU/RN PT AWAKE W/ EYES OPEN,DOES NOT TRACK,DOES NOT FOLLOW COMMANDS,RESTLESS AND SHAKING HEAD VIGOROUSLY.DENIES PAIN.DIPRIVAN DRIP INCREASED TO 70 MCG/KG/MIN.INCONTINENT OF LARGE AMT OF SOFT GREENISH STOOL AFTER PT WAS GIVEN BATH AT 0400.BATHE AGAIN. KUB DONE CXR DONE AFTER.
[2017-04-13] MEDS: BLOOD SUGAR DIAGNOSTIC 1 EACH STRIP IN SCH ×3 (06:09→17:44)
--- NOTE | 2017-04-13 06:30 | NUR ---
ICU/RN CALM AT PRESENT.NG DRAINED 500ML GREENISH TO BROWNISH DRAINAGE.
[2017-04-13] MEDS: PANTOPRAZOLE 40 MG VIAL IV SCH (07:54)
--- NOTE | 2017-04-13 08:00 | NUR ---
VASCULAR TECH: pt.is sedated well now with Diprivan 70 mcg/kg/m, SR, SBP over 100, O2 sat. WNL, NGT LIS 500ml out over night by report, pt.had big BM over night, KUB repeated: no obstruction, still gases, on wrists restraints
[2017-04-13 08:22] LABS: ABG BASE EXCESS 3.4 mmol/L; ABG OXYGEN SATURATION 97.7 % (92.0-98.5); ABG PCO2 40.3 mmHg (35.0-45.0); ABG PH 7.453 (7.350-7.450); ABG PO2 115.6 mmHg (75.0-100.0); AaDO2 195.6 mmHg; COHb 0.3 % (0.5-1.5); MetHb 0.3 % (0.0-1.5); O2Hb 97.1 % (94.0-97.0); PEEP,BG 5 cm H2O; SITE, ABG Right Radial; VT, ABG 500 mL
--- NOTE | 2017-04-13 08:26 | NUR ---
DECREASED FIO2 FROM 50% TO 40% DUE TO PAO2 115 / SPO2 98% Addendum: 04/13/17 at 0826 by MAYANK FREEDMAN RT Amended: Links added.
[2017-04-13] MEDS: POTASSIUM CL. PREMIX PERIPHER. 50 ML IV SCH ×2 (09:29→10:53)
[2017-04-13] MEDS: ASPIRIN 300 MG/SUPP.RECT RC SCH (09:29)
--- NOTE | 2017-04-13 10:00 | NUR ---
TAIL EDGER: is in room, updated with ABG, VS, I/O, KUB, sedation level, said: ok to place in flexiseal tube for gaseous destination relieve, spoke with pt.
--- NOTE | 2017-04-13 11:20 | NUR ---
BUCKSHOT SWAGE OPERATOR: Arnie, GIN FEEDER updated with all above, I/O, VS, ABG, NGT LIS amount, KUB, BS/NPO insulin SS, vent setting, labs, ordered: flexiseal tube placement, going to speak with GI
--- NOTE | 2017-04-13 11:30 | NUR ---
ORGAN INSTALLER: assessed pt., spoke with RICHARDSON Gaitan, updated with all above, said: ok to place in rectal tube, going to order meds included Golytely.
--- NOTE | 2017-04-13 16:12 | NUR ---
COMBER OPERATOR: sent message for : there are no Golytely, Simethicone orders in eMAR. Pt. is sedated well with 60 mcg/kg/m Diprivan gtt, SR, SBP over 100, O2 sat. over 96%, FiO2 40%, PM/skin care done, flexiseal tube is patent with liquid brown stool, gases, 300 ml of light brown drain by NGT LIS
[2017-04-13] MEDS: SOD FERRIC GLUC 125 MG in IV NS 0.9% 100 ML IV SCH (16:19)
--- NOTE | 2017-04-13 16:45 | NUR ---
CATALOG LIBRARY ASSISTANT: sent message/ordered: Golytely 4000ml via [employer]
--- NOTE | 2017-04-13 17:00 | NUR ---
ADMIN SECRETARY: sedation vacation/ stopped Diprivan gtt foe 20min, pt. was able to open eyes, arms/legs strong activity, but without tracking, very restless, biting ETT, tachypneic, resumed sedation
[2017-04-13] MEDS ORDERED: PEG 3350/NA SULF,BICARB,CL/KCL 4,000 ML BOTTLE PO ONE (18:00)
--- NOTE | 2017-04-13 18:50 | NUR ---
ELECTROMECHANICAL TECHNOLOGIST: 500ml Golytely was given, NGT residual 60ml now, continue Golytely next 500ml, keep HOB over 35
[2017-04-13] MEDS: ENOXAPARIN SODIUM 40 MG/0.4 ML DISP.SYRIN SQ SCH (21:33)
--- NOTE | 2017-04-13 22:00 | NUR ---
HUMAN RESOURCES TRAINEE - REC'D PT. ON DIPRIVAN GTT. AT 60 MCG/KG/MIN. SEDATION VACATION DONE W/CHANGING OF BOTTLES. PT. STARTS TO PULL ON BILAT.SOFT WRIST RESTRAINTS & BITING ETT. VENT SETTINGS AT AC 18,TV-500-40%-PEEP-5. PT.HAS HAD HIGH RESIDUALS UPON START OF SHIFT VIA RT.NARE NGT. AT 20:11=[id number] & AT 22:09=647 CC. GASTRIC CONTENTS RESEMBLE NULYTELY THAT WAS ADM. ON PRIOR SHIFT. UPON ENDORSEMENT, I WAS TO FINISH NULYTELY X 3L. RN ATTEMPTED TO GIVE NULYTELY, BUT UPON DISCUSSION W/BARTENDER MANAGER-HELD UNTIL TALK W/MD. PT.HAS RECTAL TUBE THAT IS EXPELLING WELL. SALAS CATH TO GRAVITY HAS GOOD UOP. COOLING MEASURES STARTED-100.0 ORAL TEMP AT 20:00. ALL PULSES STRONG & PALPABLE X 4 EXT. OBESE. LUE MIDLINE HAS 2 PORTS INFUSING 0.9%NS AT TKO W/ ABX'S & DIPRIVAN GTT. VSS. CONT.POC.
[2017-04-14] VITALS (56 sets, daily range): BP systolic 89–180; BP diastolic 39–94
[2017-04-14] MEDS: PROPOFOL 100 ML IV PRN ×7 (00:09→13:32)
[2017-04-14] MEDS: PIPERACILLIN /TAZOBACTAM 3.375 G in IV NS 0.9% 50 ML IV SCH ×5 (00:10→23:33)
[2017-04-14] MEDS: INSULIN REGULAR, HUMAN 100 UNIT/ML 3 ML VIAL SQ PRN ×5 (00:39→23:45)
[2017-04-14] MEDS: BLOOD SUGAR DIAGNOSTIC 1 EACH STRIP IN SCH ×5 (00:45→23:33)
[2017-04-14] MEDS: IPRATROPIUM NEB FS 0.5 MG/2.5 ML AMPUL.NEB NEB SCH ×4 (01:33→19:44)
[2017-04-14] MEDS: ALBUTEROL FS 2.5 MG/0.5 ML VIAL.NEB NEB SCH ×4 (01:33→19:44)
[2017-04-14] MEDS: VANCOMYCIN 1.25 GM in IV D5W 500 ML IV SCH ×2 (02:41→10:00)
[2017-04-14 04:54] LABS: BASOPHILS % (AUTO) 0.5 % (0.0-2.0); EOSINOPHILS # (AUTO) 0.2 /CMM (0.0-0.7); HEMATOCRIT 29 % (33-45); HEMOGLOBIN 9.9 g/dL (11.5-14.8); LYMPHOCYTES # (AUTO) 1.3 /CMM (0.8-4.8); LYMPHOCYTES % (AUTO) 23.2 % (20.0-44.0); MEAN CORPUSCULAR HEMOGLOBIN 30 PG (26.0-33.0); MEAN CORPUSCULAR HGB CONC 34 g/dl (31.0-36.0); MEAN CORPUSCULAR VOLUME 88 fL (82-100); MONOCYTES # (AUTO) 0.5 /CMM (0.1-1.30); MONOCYTES % (AUTO) 9.5 % (2.0-12.0); NEUTROPHILS # (AUTO) 3.4 /CMM (1.8-8.9); NEUTROPHILS % (AUTO) 63.8 % (43.0-81.0); PLATELET COUNT (AUTO) 224 /CMM (150-450); RDW COEFFICIENT OF VARIATION 14.9 (11.5-15.0); RED BLOOD CELL COUNT(AUTO) 3.31 MIL/uL (4.0-5.2); WHITE BLOOD COUNT (AUTO) 5.4 K/uL (4.3-11.0)
[2017-04-14 05:19] LABS: CALCIUM, SERUM 8.6 mg/dL (8.5-10.1); CREATININE 0.6 mg/dL (0.6-1.3); MAGNESIUM 1.8 mg/dL (1.8-2.4); PHOSPHORUS 3.4 mg/dL (2.5-4.9); POTASSIUM 3.1 mmol/L (3.5-5.1)
--- NOTE | 2017-04-14 06:50 | NUR ---
COOK HOUSE LABORER - PT'S LAST RESIDUALS AT 4AM WAS 400CC. 1700CC TOTAL FOR SALAS UOP. COMPLETE BEDBATH ADM. W/3RN ASSIST. VSS, BUT TEMPS WERE IN THE 99'S. PT'S -BRIAN PHONED FOR STATUS UPDATE LAST NIGHT. DIPRIVAN GTT. REMAINS AT 60/MCG/KG/MIN. VERBAL REPORT GIVEN TO KLAUDIA BARRON. CONT.POC.
[2017-04-14] MEDS: PANTOPRAZOLE 40 MG VIAL IV SCH (07:45)
--- NOTE | 2017-04-14 07:48 | NUR ---
INITIAL TECHNICAL ACCOUNT REPRESENTATIVE NOTE RCVD PT SEDATED, INTUBATED ETT 7.5 25 AT LIP TOLERATING ORDERED VENT SETTINGS WELL. BILATERAL SOFT WRIST RESTRAINTS IN PLACE, CIRCULATION CHECKS DONE. SR ON TELE. NG-TUBE PLACEMENT VERIFIED BY AUSCULTATION/ASPIRATION OVER 200 ML CLEAR GASTRIC RESIDUAL OBTAINED. FLEXISEAL IN PLACE DRAINING GREEN, LIQUID STOOL. SALAS TO GRAVITY DRAINING CLEAR, YELLOW URINE. IV SITES C/D/I/PATENT. NO S/O INFILTRATION/PHLEBITIS OBSERVED UPON FLUSHING. WILL CONTINUE TO MONITOR PT FOR SAFETY AND COMFORT. CALL LIGHT WITHIN REACH. BED IN LOW AND LOCKED POSITION.
[2017-04-14] MEDS ORDERED: POTASSIUM CL. PREMIX PERIPHER. 50 ML IV SCH (08:00)
[2017-04-14] MEDS: ASPIRIN 300 MG/SUPP.RECT RC SCH (09:22)
--- NOTE | 2017-04-14 11:12 | NUR ---
PLYWOOD FACTORY WORKER NOTE PT'S AT BEDSIDE UPDATED ON PT'S CONDITION. QUESTIONS ENCOURAGED AND ANSWERED. SEDATION VACATION PERFORMED PT ABLE TO FOLLOW SIMPLE COMMANDS SUCH OPEN AND CLOSE EYES, AND MOVE RIGHT FOOT. PT UNABLE TO SQUEEZE HANDS. PT PLACED BACK ON SEDATION. WILL CONTINUE TO MONITOR.
[2017-04-14] MEDS: POTASSIUM CL. PREMIX PERIPHER. 50 ML IV SCH ×4 (12:34→17:31)
--- NOTE | 2017-04-14 13:15 | NUR ---
COUNSELOR SUPERVISOR NOTE RICHARDSON MORRISON IN UNIT INFORMED THAT PT'S SBP 170-180'S THIS AM NO PRN BP MEDICATION ORDERED. HE RECOMMENDED TO Addendum: 04/14/17 at 1316 by KLAUDIA GLOVER RN RICHARDSON MORRISON WILL ORDER PRN MED. BENEDICTO AT BEDSIDE HE RECOMMENDED TO DISCONTINUE MEDICATION. WILL DO.
[2017-04-14] MEDS: SOD FERRIC GLUC 125 MG in IV NS 0.9% 100 ML IV SCH (14:32)
[2017-04-14] MEDS ORDERED: HYDROMORPHONE INJ 2 MG/ML DISP.SYRIN IV PRN ×2 (15:30→19:30)
--- NOTE | 2017-04-14 16:01 | NUR ---
MATERIAL CARRIER NOTE PT'S TRIGLYCERIDES ELEVATED, MD AWARE DIPRIVAN DISCONTINUED AND PT TO RECEIVE ATIVAN/DILAUDID PRN FOR SEDATION. PT AWAKE APPEARS TO BE CALM AT THIS TIME. WILL CONTINUE TO MONITOR.
[2017-04-14] MEDS: VANCOMYCIN 1.25 GM in IV NS 0.9% 500 ML IV SCH (16:49)
[2017-04-14] MEDS: LORAZEPAM INJ 2 MG/ML VIAL IV PRN ×4 (17:39→22:49)
--- NOTE | 2017-04-14 18:41 | NUR ---
PET ADOPTION COUNSELOR NOTE PT AWAKE, RESPONDS TO NAME, ON BILATERAL SOFT WRIST RESTRAINTS, REACHING FOR ET TUBE, ATTEMPTED TO PULL OUT. PT WAS GIVEN ATIVAN FOR SEDATION ORDERED. SR ON TELE. TOLERATING ORDERED VENT SETTINGS. NG-TUBE PLACEMENT VERIFIED BY AUSCULTATION/ASPIRATION. GASTRIC RESIDUAL 20ML FOUND AROUND 1600, HOB ELEVATED. SALAS TO GRAVITY DRAINING CLEAR, GREENISH URINE. IV SITES REMAIN C/D/I/PATENT. NO S/O INFILTRATION/PHLEBITIS OBSERVED UPON FLUSHING. PT'S CARE WILL BE ENDORSED TO MEDICAL APPOINTMENT CLERK RN FOR CONTINUITY OF CARE.
--- NOTE | 2017-04-14 19:58 | NUR ---
SUPERVISOR MACHINE WORKERS NOTE RECEIVED PT IN BED SEDATED, INTUBATED ETT 7.5 25 AT LIP, TOLERATING THE SETTINGS WELL. RT AT BED SIDE GIVING BTX ALSO SUCTIONED THE PT. PT NOTED SLIGHTLY BECOME RESTLESS, ATIVAN 2 MG IVP GIVEN. PT ON BILATERAL SOFT WRIST RESTRAINTS, SKIN AROUND THE RESTRAINTS WNL. NGT RT NARE INTACT AND PATENT, CLAMPED. PT IS NPO. F/C INTACT AND PATENT DRAINING YELLOWISH COLOR URINE. FLEXISEAL ALSO IN PLACE AND INTACT, 0 ML STOOL AT THIS TIME. STEVE MIDLINE INTACT AND PATENT TKO NS. ALSO RAC #20 G S/L INTACT AND PATENT. NO S/S OF HYPO OR HYPERGLYCEMIA NOTED. SIDE RAILS UP X 3, CALL LIGHT WITHIN REACH. REPOSITION HER FOR SKIN MANAGEMENT. CONTINUE TO MONITOR HER.
[2017-04-14] MEDS: ENOXAPARIN SODIUM 40 MG/0.4 ML DISP.SYRIN SQ SCH (20:44)
--- NOTE | 2017-04-14 22:54 | NUR ---
WOOD PRODUCTS MANUFACTURER NOTE PT WAKING UP AND MOVING HER FACE SIDE TO SIDE. SLIGHTLY RESTLESS. ATIVAN 2 MG IVP GIVEN.
[2017-04-15] VITALS (50 sets, daily range): BP systolic 78–164; BP diastolic 31–90
[2017-04-15] MEDS: LORAZEPAM INJ 2 MG/ML VIAL IV PRN ×3 (00:31→22:59)
--- NOTE | 2017-04-15 01:13 | NUR ---
PUNCH BOX TENDER NOTE PT RESTLESS AND SOME GRIMACE NOTED ON FACE. DILAUDID 2 MG IVP GIVEN. VSS. CONTINUE TO MONITOR HER.
--- NOTE | 2017-04-15 01:43 | NUR ---
INTERNATIONAL TAX MANAGER NOTE NO MORE GRIMACE NOTED ON FACE. PT IS CALM AND SEDATED. NO DISTRESS NOTED.
[2017-04-15] MEDS: IPRATROPIUM NEB FS 0.5 MG/2.5 ML AMPUL.NEB NEB SCH ×4 (01:57→19:43)
[2017-04-15] MEDS: ALBUTEROL FS 2.5 MG/0.5 ML VIAL.NEB NEB SCH ×4 (01:57→19:43)
[2017-04-15] MEDS: VANCOMYCIN 1.25 GM in IV NS 0.9% 500 ML IV SCH ×2 (04:04→15:56)
[2017-04-15] MEDS: BLOOD SUGAR DIAGNOSTIC 1 EACH STRIP IN SCH ×4 (05:17→23:08)
[2017-04-15] MEDS: INSULIN REGULAR, HUMAN 100 UNIT/ML 3 ML VIAL SQ PRN ×3 (05:21→17:09)
[2017-04-15 05:25] LABS: BASOPHILS % (AUTO) 0.3 % (0.0-2.0); EOSINOPHILS # (AUTO) 0.2 /CMM (0.0-0.7); EOSINOPHILS % (AUTO) 3.3 % (0.0-6.0); HEMATOCRIT 28 % (33-45); HEMOGLOBIN 9.4 g/dL (11.5-14.8); LYMPHOCYTES # (AUTO) 1.5 /CMM (0.8-4.8); LYMPHOCYTES % (AUTO) 23.2 % (20.0-44.0); MEAN CORPUSCULAR HEMOGLOBIN 30 PG (26.0-33.0); MEAN CORPUSCULAR HGB CONC 34 g/dl (31.0-36.0); MEAN CORPUSCULAR VOLUME 87 fL (82-100); MONOCYTES # (AUTO) 0.7 /CMM (0.1-1.30); MONOCYTES % (AUTO) 10.7 % (2.0-12.0); NEUTROPHILS # (AUTO) 4.1 /CMM (1.8-8.9); NEUTROPHILS % (AUTO) 62.5 % (43.0-81.0); PLATELET COUNT (AUTO) 228 /CMM (150-450); RDW COEFFICIENT OF VARIATION 14.5 (11.5-15.0); RED BLOOD CELL COUNT(AUTO) 3.18 MIL/uL (4.0-5.2); WHITE BLOOD COUNT (AUTO) 6.5 K/uL (4.3-11.0)
--- NOTE | 2017-04-15 05:29 | NUR ---
DIESEL AUTOMOTIVE TECHNICIAN NOTE ATIVAN 2 MG IVP GIVEN FOR RESTLESSNESS, ALSO BED BATH GIVEN. PT TOLERATED WELL. REPOSITION HER Q2H, KEPT HER DRY AND CLEAN.
[2017-04-15 05:32] LABS: CREATININE 0.6 mg/dL (0.6-1.3); MAGNESIUM 1.8 mg/dL (1.8-2.4)
[2017-04-15] MEDS: PIPERACILLIN /TAZOBACTAM 3.375 G in IV NS 0.9% 50 ML IV SCH ×4 (06:22→23:08)
--- NOTE | 2017-04-15 06:32 | NUR ---
JUNIOR AUTOMATION ENGINEER NOTE PT IN BED SEDATED. NO RESTLESS NOTED. TOLERATING VENT SETTINGS. SUCTIONED HER FREQUENTLY THIN WHITE SECRETIONS NOTED. FLEXISEAL INTACT AND PATENT DRAINING DARK BROWNISH COLOR LIQUIDY STOOL. REPOSITION HER Q2H, KEPT HER DRY AND CLEAN. ALL NEEDS ATTENDED. SIDE RAILS UP X 3 AND CALL LIGHT WITHIN REACH. VSS. WILL ENDORSE TO DAY SHIFT NURSE FOR CONTINUE TO CARE.
--- NOTE | 2017-04-15 07:52 | NUR ---
INITIAL COSMETOLOGY PROFESSOR NOTE RCVD PT AWAKE BUT DROWSY, ALERT TO NAME, ABLE TO FOLLOW SIMPLE COMMANDS SUCH MOVE LEGS. SR ON TELE. REMAINS INTUBATED ETT 7.5 25 AT LIP. TOLERATING ORDERED VENT SETTINGS. BILATERAL SOFT WRIST RESTRAINTS IN PLACE. CIRCULATION CHECKS DONE. NG-TUBE PLACEMENT VERIFIED BY AUSCULTATION/ASPIRATION. GREEN, SEE THROUGH GASTRIC CONTENTS OBSERVED. SALAS TO GRAVITY DRAINING CLEAR, YELLOW URINE. IV SITES C/D/I/PATENT. NO S/O INFILTRATION/PHLEBITIS OBSERVED UPON FLUSHING. WILL CONTINUE TO MONITOR PT FOR SAFETY AND COMFORT. CALL LIGHT WITHIN REACH. BED IN LOW AND LOCKED POSITION. PT WAS EXPLAINED PLAN OF CARE FOR TODAY, WEANING TRIAL SCHEDULED.
--- NOTE | 2017-04-15 08:00 | NUR ---
WEANING TRIAL ORDER: PT IS AWAKE AND FOLLOW COMMANDS. SIMV 4 PS 12 PEEP+5 FIO2 40% SPO2 98% SC 74 RR 18 PT CAN LEFT HER HEAD WITHOUT WAREHOUSE SHIPPING RECEIVING CLERK. Addendum: 04/15/17 at 0806 by MAYANK FREEDMAN RT Amended: Links added.
[2017-04-15] MEDS: PANTOPRAZOLE 40 MG VIAL IV SCH (08:37)
[2017-04-15] MEDS: ASPIRIN 300 MG/SUPP.RECT RC SCH (08:39)
[2017-04-15] MEDS ORDERED: DC PROPOFOL WHEN EXTUBATED XX PRN (09:00)
--- NOTE | 2017-04-15 09:15 | NUR ---
ASSOCIATE PROFESSOR OF HISTORY NOTE PT UNDERGOING WEANING TRIAL AT THIS TIME. PT APPEARS CALM TOLERATING WELL. VITAL SIGNS REMAIN STABLE. WILL CONTINUE TO MONITOR.
[2017-04-15 09:49] LABS: ABG BASE EXCESS 3.1 mmol/L; ABG OXYGEN SATURATION 96.9 % (92.0-98.5); ABG PCO2 41.8 mmHg (35.0-45.0); ABG PH 7.437 (7.350-7.450); ABG PO2 101.2 mmHg (75.0-100.0); AaDO2 135.9 mmHg; COHb 0.3 % (0.5-1.5); MetHb 0.4 % (0.0-1.5); O2Hb 96.2 % (94.0-97.0); PEEP,BG 5 cm H2O; SITE, ABG Right Radial; VENT MODE, BG SIMV 4 / PS 12; VT, ABG 500 mL
[2017-04-15] MEDS: POTASSIUM CL. PREMIX PERIPHER. 50 ML IV SCH ×6 (09:55→16:17)
--- NOTE | 2017-04-15 10:00 | NUR ---
VENT CHANGES BELLOW ORDER: CPAP 5 PS 12 FIO2 40% Addendum: 04/15/17 at 1001 by MAYANK FREEDMAN RT Amended: Links added.
--- NOTE | 2017-04-15 10:39 | NUR ---
REFRIGERATOR ROOM CLERK NOTE PT TOLERATED WELL SIMV MODE, CURRENTLY ON CPAP TOLERATING WELL. WILL CONTINUE TO MONITOR. PT'S , BRIAN CALLED INQUIRING ON PT'S CONDITION. HE WAS UPDATED.
[2017-04-15] MEDS ORDERED: POTASSIUM CL. PREMIX PERIPHER. 50 ML IV SCH (13:00)
[2017-04-15 13:43] LABS: ABG BASE EXCESS 4.5 mmol/L; ABG PCO2 42.8 mmHg (35.0-45.0); ABG PH 7.448 (7.350-7.450); ABG PO2 88.3 mmHg (75.0-100.0); AaDO2 147.7 mmHg; COHb 0.3 % (0.5-1.5); MetHb 0.5 % (0.0-1.5); O2Hb 95.2 % (94.0-97.0); SITE, ABG Right Radial
--- NOTE | 2017-04-15 14:00 | NUR ---
EXTUBATE ORDER. PT. EXTUBATED AND PLACED ON VENTURI MASK @ 30% SPO2 96 TO 98% HR 83 - 88 RR 14 - 18 Addendum: 04/15/17 at 1542 by MAYANK FREEDMAN RT Amended: Links added.
[2017-04-15] MEDS ORDERED: ONDANSETRON HCL/PF 4 MG/2 ML VIAL IV PRN (16:00)
--- NOTE | 2017-04-15 16:37 | NUR ---
PHYTOCHEMISTRY PROFESSOR NOTE NG-TUBE RESIDUAL ASSESSED BROWN (COFFEE GROUND) DRAINAGE OBTAINED ABOUT 300 ML. TAMI [place] INFORMED. RICHARDSON VICK FROM DR. PIERCE'S OFFICE AT BEDSIDE ASSESSED PT AND RECOMMENDED TO START PT ON PROTONIX GTT, KEEP NPO FOR NOW AND GET KUB DONE. WILL F/U.
[2017-04-15] MEDS ORDERED: DIATR MEGLU/DIATRIZOATE SODIUM 30 ML BOTTLE (GASTROGRAPHIN) ONE (17:31)
[2017-04-15 18:25] LABS: BASOPHILS % (AUTO) 0.3 % (0.0-2.0); EOSINOPHILS # (AUTO) 0.2 /CMM (0.0-0.7); EOSINOPHILS % (AUTO) 2.3 % (0.0-6.0); HEMATOCRIT 32 % (33-45); HEMOGLOBIN 10.8 g/dL (11.5-14.8); LYMPHOCYTES # (AUTO) 1.1 /CMM (0.8-4.8); LYMPHOCYTES % (AUTO) 11.7 % (20.0-44.0); MEAN CORPUSCULAR HEMOGLOBIN 30 PG (26.0-33.0); MEAN CORPUSCULAR HGB CONC 34 g/dl (31.0-36.0); MEAN CORPUSCULAR VOLUME 88 fL (82-100); MONOCYTES # (AUTO) 0.8 /CMM (0.1-1.30); MONOCYTES % (AUTO) 8.9 % (2.0-12.0); NEUTROPHILS % (AUTO) 76.8 % (43.0-81.0); PLATELET COUNT (AUTO) 277 /CMM (150-450); RDW COEFFICIENT OF VARIATION 14.9 (11.5-15.0); RED BLOOD CELL COUNT(AUTO) 3.59 MIL/uL (4.0-5.2); WHITE BLOOD COUNT (AUTO) 9.1 K/uL (4.3-11.0)
[2017-04-15] MEDS: PANTOPRAZOLE 80 MG in IV NS 0.9% 500 ML IV PRN (18:26)
--- NOTE | 2017-04-15 19:00 | NUR ---
SUPERVISOR FISHING NOTE PT AWAKE AND ALERT TO SELF, SR ON TELE. ON VENTURI MASK TOLERATING WELL. BILATERAL SOFT WRIST RESTRAINTS RE-STARTED AFTER PT PULLED NG TUBE. LEFT NG TUBE PLACEMENT DONE, VERIFIED BY TWO RNs, KUB DONE PENDING REPORT. IV SITES C/D/I/PATENT. NO S/O INFILTRATION/PHLEBITIS OBSERVED. IVF INFUSING. PT'S CARE ENDORSED TO FINANCE LECTURER RN FOR CONTINUITY OF CARE. BED IN LOW AND LOCKED POSITION.
--- NOTE | 2017-04-15 20:10 | NUR ---
FOOD SERVICE KITCHEN SUPERVISOR. INITIAL ASSESSMENT. RECEIVED THE PT REST ON THE BED. AWAKE, ALERT, FOLLOW COMMANDS. COLD MEAT COOK SHOWING NSR. IV LT UPPER ARM MID LINE. PROTONIX 50ML/H. FLEXA SEAL INTACT. FC PATENT. RT NARE NGT INTACT. LOW INTERMITTENT SUCTION.
[2017-04-15] MEDS: ENOXAPARIN SODIUM 40 MG/0.4 ML DISP.SYRIN SQ SCH (22:31)
[2017-04-16] VITALS (39 sets, daily range): BP systolic 130–193; BP diastolic 70–107
[2017-04-16] MEDS: ALBUTEROL FS 2.5 MG/0.5 ML VIAL.NEB NEB SCH ×4 (02:18→20:28)
[2017-04-16] MEDS: IPRATROPIUM NEB FS 0.5 MG/2.5 ML AMPUL.NEB NEB SCH ×4 (02:18→20:28)
[2017-04-16] MEDS: PANTOPRAZOLE 80 MG in IV NS 0.9% 500 ML IV PRN (02:54)
--- NOTE | 2017-04-16 03:53 | NUR ---
ORNAMENTAL IRON WORKER APPRENTICE. AM CARE, ORAL CARE, BED BATH GIVEN. LINEN CHANGED. REMAINING SAME OXYGEN TOLERATED WELL. SAT 97%. BOX FOLDING MACHINE OPERATOR SHOWING NSR, IV LT AC MID LINE , PROTONIX 50ML/H. FC PATENT. URINE DRAINING. NGT LOW INTERMITTENT SUCTION. HOB ELEVATED. `TURN AND REPOSITION Q2H. WILL CONTINUE TO MONITOR VITALS.
[2017-04-16] MEDS: VANCOMYCIN 1.25 GM in IV NS 0.9% 500 ML IV SCH ×2 (04:11→17:07)
[2017-04-16 05:02] LABS: BASOPHILS # (AUTO) 0.1 /CMM (0.0-0.2); BASOPHILS % (AUTO) 1.3 % (0.0-2.0); EOSINOPHILS # (AUTO) 0.2 /CMM (0.0-0.7); HEMATOCRIT 31 % (33-45); HEMOGLOBIN 10.7 g/dL (11.5-14.8); LYMPHOCYTES # (AUTO) 1.1 /CMM (0.8-4.8); LYMPHOCYTES % (AUTO) 13.5 % (20.0-44.0); MEAN CORPUSCULAR HEMOGLOBIN 30 PG (26.0-33.0); MEAN CORPUSCULAR HGB CONC 34 g/dl (31.0-36.0); MEAN CORPUSCULAR VOLUME 87 fL (82-100); MONOCYTES # (AUTO) 0.7 /CMM (0.1-1.30); NEUTROPHILS # (AUTO) 6.2 /CMM (1.8-8.9); NEUTROPHILS % (AUTO) 75.2 % (43.0-81.0); PLATELET COUNT (AUTO) 286 /CMM (150-450); RDW COEFFICIENT OF VARIATION 14.8 (11.5-15.0); RED BLOOD CELL COUNT(AUTO) 3.59 MIL/uL (4.0-5.2); WHITE BLOOD COUNT (AUTO) 8.2 K/uL (4.3-11.0)
[2017-04-16] MEDS: BLOOD SUGAR DIAGNOSTIC 1 EACH STRIP IN SCH ×4 (05:06→23:05)
[2017-04-16] MEDS: INSULIN REGULAR, HUMAN 100 UNIT/ML 3 ML VIAL SQ PRN ×4 (05:07→23:19)
[2017-04-16] MEDS: PIPERACILLIN /TAZOBACTAM 3.375 G in IV NS 0.9% 50 ML IV SCH ×4 (05:07→23:05)
[2017-04-16 05:22] LABS: ALBUMIN 2.4 g/dL (3.4-5.0); BILIRUBIN,TOTAL 0.5 mg/dL (0.2-1.0); CALCIUM, SERUM 8.9 mg/dL (8.5-10.1); CREATININE 0.6 mg/dL (0.6-1.3); MAGNESIUM 1.8 mg/dL (1.8-2.4); PHOSPHORUS 2.5 mg/dL (2.5-4.9); TOTAL PROTEIN, SERUM 7.5 g/dL (6.4-8.2)
[2017-04-16 05:34] LABS: POTASSIUM 2.7 mmol/L (3.5-5.1)
--- NOTE | 2017-04-16 06:52 | NUR ---
MOTOR ELECTRICIAN. POTASSIUM 2.7. PAGED SARAH NEW ORDER RECEIVED. POTASSIUM 40 MEQ IV.
[2017-04-16] MEDS ORDERED: POTASSIUM CL. PREMIX PERIPHER. 50 ML IV SCH (07:00)
--- NOTE | 2017-04-16 07:34 | NUR ---
INITIAL TABLE MAKER NOTE PT AWAKE AND ALERT X4, SR ON TELE. ON VENTURI MASK TOLERATING WELL. BILATERAL SOFT WRIST RESTRAINTS IN PLACE. CIRCULATION CHECKS DONE. LEFT NG TUBE PLACEMENT VERIFIED BY AUSCULTATION/ASPIRATION. NG TO LOW INTERMITTENT SUCTION WITH BROWN GASTRIC CONTENT OBSERVED IN CANISTER. STEVE MIDLINE C/D/I/PATENT. NO S/O INFILTRATION/PHLEBITIS OBSERVED. RIGHT AC #20 OUT AND DISCONTINUED. WILL CONTINUE TO MONITOR PT FOR SAFETY AND COMFORT. BED IN LOW AND LOCKED POSITION. CALL LIGHT WITHIN REACH.
[2017-04-16] MEDS: ASPIRIN 300 MG/SUPP.RECT RC SCH (08:31)
[2017-04-16] MEDS: POTASSIUM CL. PREMIX PERIPHER. 50 ML IV SCH ×10 (08:31→18:56)
--- NOTE | 2017-04-16 08:37 | NUR ---
MOVER HELPER NOTE DR. PATEL AT BEDSIDE INFORMED THAT PT'S K 2.7 THIS AM AND ORDER FOR 40 MEQ ENTERED. HE RECOMMENDED TO GIVE A TOTAL OF 100 MEQ IV. ORDER ENTERED AND WILL BE CARRIED OUT.
[2017-04-16 08:57] LABS: ABG BASE EXCESS 4.1 mmol/L; ABG OXYGEN SATURATION 90.3 % (92.0-98.5); ABG PH 7.473 (7.350-7.450); ABG PO2 58.3 mmHg (75.0-100.0); AaDO2 109.8 mmHg; COHb 0.4 % (0.5-1.5); MetHb 0.2 % (0.0-1.5); O2Hb 89.8 % (94.0-97.0); SITE, ABG Right Radial; VENT MODE, BG 30% VENTI MASK
[2017-04-16] MEDS ORDERED: BUMETANIDE INJ 0.25 MG/ML VIAL IV SCH (12:00)
--- NOTE | 2017-04-16 12:34 | NUR ---
ALUMINUM SIDING APPLICATOR NOTE DR. ABDALLA IN UNIT ASSESSING PT UPDATED ON PT'S CONDITION. INFORMED THAT PT'S SBP AT TIMES GOES ABOVE 160 AND THAT PT STATES THAT SHE TAKES BP MEDICATION AT HOME REGULARLY. HE RECOMMENDED TO ADD PRN BP MEDICATION.
[2017-04-16] MEDS ORDERED: LORAZEPAM INJ 2 MG/ML VIAL IV PRN ×2 (13:30→18:30)
[2017-04-16] MEDS: hydrALAZINE HCL IV 20 MG VIAL IV PRN ×2 (13:31→20:14)
[2017-04-16] MEDS ORDERED: FUROSEMIDE 20 MG/2 ML VIAL IV SCH (17:00)
[2017-04-16] MEDS: PANTOPRAZOLE 40 MG VIAL IV SCH (17:06)
[2017-04-16] MEDS: FLUTICASONE PROPIONATE 16 GM BOTTLE NS SCH (17:08)
[2017-04-16] MEDS ORDERED: SUMATRIPTAN SUCCINATE 6 MG/0.5 ML VIAL SQ ONE (18:00)
--- NOTE | 2017-04-16 18:43 | NUR ---
CARBURETOR SPECIALIST NOTE PT AWAKE AND ALERT. ANXIOUS AND RESTLESS AT TIMES, SR ON TELE. ON VENTURI MASK TOLERATING WELL. BILATERAL SOFT WRIST RESTRAINTS IN PLACE, PT CONTINUES TO PULL MASK OFF DESPITE BEING INSTRUCTED NOT TO DO THAT AND ACKNOWLEDGING INFORMATION. LEFT NG TUBE PLACEMENT VERIFIED BY AUSCULTATION/ASPIRATION. SALAS TO GRAVITY DRAINING CLEAR, YELLOW URINE. FLEXISEAL IN PLACE DRAINING LIQUID GREEN STOOL. BILATERAL MIDLINES IN PLACE IV SITES C/D/I/PATENT. NO S/O INFILTRATION/PHLEBITIS OBSERVED UPON FLUSHING. PT'S CARE WILL BE ENDORSED TO MANAGER PLUMBING RN FOR CONTINUITY OF CARE. BED IN LOW AND LOCKED POSITION. CALL LIGHT WITHIN REACH.
--- NOTE | 2017-04-16 19:30 | NUR ---
UPPER AND BOTTOM LACER HAND INITIAL NOTE PT RECEIVED SITTING UP IN BED. A/O X 3 AND ABLE TO VERBALIZE NEEDS. ON 6L OF 02/ 30% FIO2 VIA VENTURI MASK AND SATURATING 96%. PT NOTED TO BE RESTLESS AND MOVING AROUND IN BED. BREATHING REGULAR AND UNLABORED. TELE- SR 80'S. L NARE NG TUBE WITH VERIFIED PLACEMENT BY AUSCULTATION CONNECTED TO LOW INTERMITTENT SUCTION. HOB ELEVATED AND ON ASPIRATION PRECAUTIONS. BILATERAL SOFT WRIST RESTRAINTS IN PLACE AND SECURED TO THE BED FRAME. NO DISCOLORATION NOTED AND PULSES PALPABLE BILATERALLY. IV BILATERAL MIDLINES IN PLACE, DRY, PATENT AND CLEAN. SALAS CATHETER IN PLACE AND DRAINING CLEAR/ YELLOW URINE BY GRAVITY. FLEXI SEAL IN AND DRAINING. CALL LIGHT WITHIN REACH. WILL CONTINUE TO MONITOR.
[2017-04-16] MEDS: ENOXAPARIN SODIUM 40 MG/0.4 ML DISP.SYRIN SQ SCH (20:40)
[2017-04-17] VITALS (43 sets, daily range): BP systolic 127–199; BP diastolic 60–122
[2017-04-17] MEDS: ALBUTEROL FS 2.5 MG/0.5 ML VIAL.NEB NEB SCH ×4 (00:26→20:22)
[2017-04-17] MEDS: IPRATROPIUM NEB FS 0.5 MG/2.5 ML AMPUL.NEB NEB SCH ×4 (00:26→20:22)
[2017-04-17] MEDS: hydrALAZINE HCL IV 20 MG VIAL IV PRN ×4 (01:03→22:06)
--- NOTE | 2017-04-17 02:00 | NUR ---
ARCHITECTURAL PRACTICE MANAGER NOTE PT NOTED WHEEZING AND STOMACH BREATHING. ABG ORDERED WITH RT AT BEDSIDE. ABG RESULTS PH 7.46, CO2 38.5, HCO3 26.9, O2 58. INCREASED VENTURI MASK TO 50% AND TOLERATING WELL. WILL CONTINUE TO MONITOR.
[2017-04-17 02:34] LABS: ABG PCO2 38.5 mmHg (35.0-45.0); ABG PH 7.462 (7.350-7.450); AaDO2 110.7 mmHg; COHb 0.8 % (0.5-1.5); MetHb 0.4 % (0.0-1.5); O2Hb 89.9 % (94.0-97.0); SITE, ABG Right Radial; VENT MODE, BG VENTRI MASK
[2017-04-17] MEDS: VANCOMYCIN 1.25 GM in IV NS 0.9% 500 ML IV SCH (04:45)
[2017-04-17 04:58] LABS: BASOPHILS % (AUTO) 0.4 % (0.0-2.0); EOSINOPHILS # (AUTO) 0.1 /CMM (0.0-0.7); EOSINOPHILS % (AUTO) 1.5 % (0.0-6.0); HEMATOCRIT 34 % (33-45); HEMOGLOBIN 11.5 g/dL (11.5-14.8); LYMPHOCYTES # (AUTO) 1.1 /CMM (0.8-4.8); LYMPHOCYTES % (AUTO) 12.6 % (20.0-44.0); MEAN CORPUSCULAR HEMOGLOBIN 30 PG (26.0-33.0); MEAN CORPUSCULAR HGB CONC 34 g/dl (31.0-36.0); MEAN CORPUSCULAR VOLUME 89 fL (82-100); MONOCYTES # (AUTO) 0.8 /CMM (0.1-1.30); MONOCYTES % (AUTO) 8.8 % (2.0-12.0); NEUTROPHILS # (AUTO) 6.6 /CMM (1.8-8.9); NEUTROPHILS % (AUTO) 76.7 % (43.0-81.0); PLATELET COUNT (AUTO) 296 /CMM (150-450); RDW COEFFICIENT OF VARIATION 14.9 (11.5-15.0); RED BLOOD CELL COUNT(AUTO) 3.88 MIL/uL (4.0-5.2); WHITE BLOOD COUNT (AUTO) 8.6 K/uL (4.3-11.0)
[2017-04-17 05:07] LABS: CREATININE 0.8 mg/dL (0.6-1.3); MAGNESIUM 1.8 mg/dL (1.8-2.4); POTASSIUM 2.9 mmol/L (3.5-5.1)
[2017-04-17] MEDS: PIPERACILLIN /TAZOBACTAM 3.375 G in IV NS 0.9% 50 ML IV SCH ×4 (06:00→23:25)
[2017-04-17] MEDS: BLOOD SUGAR DIAGNOSTIC 1 EACH STRIP IN SCH ×4 (06:00→23:26)
[2017-04-17] MEDS: INSULIN REGULAR, HUMAN 100 UNIT/ML 3 ML VIAL SQ PRN ×4 (06:12→23:26)
--- NOTE | 2017-04-17 07:30 | NUR ---
MICROSOFT EXCHANGE ARCHITECT RECEIVED PATIENT ASLEEP WITH ON GOING TKO ON VENTURI MASK AT 10.0L EASILY AROUSAL, TO PAIN AND OPEN EYES SPONTANEOUSLY STILL HAS SOB WHEN TALKING, ADVICE TO REST INSTEAD MAINTAINED ON NPO, ICE CHIPS GEN FOR DY MOUTH AND LIPS REPLACEMENT OF POTASSIUM WILL BE GIVEN STILL LISA BARRON IS ON THE FLOOR TO WATCH PATIENT FOR FEW HOURS SINCE WILL GO TO ASSIST IN A PROCEDURE WITH SALAS CATHETER DRAINING TO DARK YELLOW URINE ADEQUATE IN AMOUNT
[2017-04-17 08:09] LABS: ABG OXYGEN SATURATION 96.3 % (92.0-98.5); ABG PCO2 40.2 mmHg (35.0-45.0); ABG PH 7.475 (7.350-7.450); ABG PO2 88.6 mmHg (75.0-100.0); AaDO2 150.4 mmHg; COHb 0.1 % (0.5-1.5); MetHb 0.3 % (0.0-1.5); O2Hb 95.9 % (94.0-97.0); SITE, ABG Left Radial; VENT MODE, BG VM
[2017-04-17] MEDS: PANTOPRAZOLE 40 MG VIAL IV SCH ×2 (08:19→16:02)
[2017-04-17] MEDS: FLUTICASONE PROPIONATE 16 GM BOTTLE NS SCH ×2 (08:20→16:03)
[2017-04-17] MEDS: ASPIRIN 300 MG/SUPP.RECT RC SCH (08:52)
[2017-04-17] MEDS: POTASSIUM CL. PREMIX PERIPHER. 50 ML IV SCH ×10 (08:52→18:33)
[2017-04-17] MEDS ORDERED: POTASSIUM CL. PREMIX PERIPHER. 50 ML IV SCH (09:00)
--- NOTE | 2017-04-17 09:23 | NUR ---
COLLATERAL CLERK CLOSING NOTE PT REMAINED STABLE DURING SHIFT. ALL NEEDS ATTENDED TO PROMPTLY. VENTURI MASK AT 40% AND SATURATING WELL. KEPT CLEAN AND DRY. BILATERAL SOFT WRIST RESTRAINTS IN PLACE AND NO DISCOLORATION NOTED. HOB ELEVATED. NG TUBE IN PLACE AND PLACEMENT VERIFIED. TO LOW INTERMITTENT SUCTION. DR. PAL AT BEDSIDE WITH ORDERS TO DC ATIVAN ORDER. ORDERS NOTED AND CARRIED OUT. CALL LIGHT WITHIN REACH. WILL ENDORSE TO NEXT SHIFT FOR CONTINUITY OF CARE.
--- NOTE | 2017-04-17 10:00 | NUR ---
TAILOR MEN'S READY TO WEAR PATIENT RECEIVED AWAKE WITH AT BEDSIDE SHE COMPLAINED OF ARM PAIN CONTINUE MAGNESIUM AND K REPLACEMENT MONITORED CLOSELY
[2017-04-17] MEDS: Magnesium 1GM/D5W 100ML PREMIX 100 ML IV SCH ×2 (10:54→11:40)
[2017-04-17] MEDS ORDERED: VANCOMYCIN 1 GM in IV D5W 250 ML IV SCH (16:00)
--- NOTE | 2017-04-17 17:33 | NUR ---
RODBUSTER PATIENT IS COMPLAINING OF ARM PAIN DUE TO BLOOD PRESSURE CUFF PLACED BP CUFF OVER CALF AREA BUT READING IS NOT ACCURATE RANDOMLY PLACED BP CUFF OVER HIS ARM TO CHECK BP RESULT
--- NOTE | 2017-04-17 18:39 | NUR ---
PSYCHOLOGIST MILITARY PERSONNEL METOCLOPROMIDE IV NOT AVAILABLE IN [facility], INFORMED PHARMACY TO BRING MEDICATION
[2017-04-17] MEDS: METOCLOPRAMIDE HCL 10 MG/2 ML VIAL IV SCH ×2 (19:30→23:25)
--- NOTE | 2017-04-17 20:25 | NUR ---
received pt from day shift, s/p extubation, alert, follows commands, drowsy, SR, on 4L 02 sat well, lungs diminished, some edema BL hands, NG to LIS, f/c OK output, rectal tube intact, v/s stable, no pain, pt turned and repositioned.
[2017-04-17] MEDS: ENOXAPARIN SODIUM 40 MG/0.4 ML DISP.SYRIN SQ SCH (21:13)
--- NOTE | 2017-04-17 22:20 | NUR ---
BP 173/80, hydralazine 10mg ivp given
--- NOTE | 2017-04-17 23:00 | NUR ---
BP recheck 127/60
[2017-04-18] VITALS (19 sets, daily range): BP systolic 110–157; BP diastolic 45–90
--- NOTE | 2017-04-18 00:40 | NUR ---
pt is resting in the bed, v/s stable, no pain, pt turned and repositioned q2hrs.
[2017-04-18] MEDS: ALBUTEROL FS 2.5 MG/0.5 ML VIAL.NEB NEB SCH ×4 (01:53→20:18)
[2017-04-18] MEDS: IPRATROPIUM NEB FS 0.5 MG/2.5 ML AMPUL.NEB NEB SCH ×4 (01:53→20:18)
--- NOTE | 2017-04-18 04:15 | NUR ---
pt is resting in the bed, no acute distress overnight, SR, on 4L 02 sat well, no output from NG tube for 12hrs, v/s stable, no pain, pt cleaned, changed and repositioned q2hrs.
[2017-04-18] MEDS: PIPERACILLIN /TAZOBACTAM 3.375 G in IV NS 0.9% 50 ML IV SCH ×3 (05:01→17:32)
[2017-04-18] MEDS: METOCLOPRAMIDE HCL 10 MG/2 ML VIAL IV SCH ×3 (05:01→17:02)
[2017-04-18 05:21] LABS: BASOPHILS % (AUTO) 0.3 % (0.0-2.0); EOSINOPHILS % (AUTO) 0.4 % (0.0-6.0); HEMATOCRIT 36 % (33-45); HEMOGLOBIN 12.1 g/dL (11.5-14.8); LYMPHOCYTES # (AUTO) 1.1 /CMM (0.8-4.8); LYMPHOCYTES % (AUTO) 10.4 % (20.0-44.0); MEAN CORPUSCULAR HEMOGLOBIN 30 PG (26.0-33.0); MEAN CORPUSCULAR HGB CONC 33 g/dl (31.0-36.0); MEAN CORPUSCULAR VOLUME 88 fL (82-100); MONOCYTES # (AUTO) 0.9 /CMM (0.1-1.30); MONOCYTES % (AUTO) 8.1 % (2.0-12.0); NEUTROPHILS # (AUTO) 8.8 /CMM (1.8-8.9); NEUTROPHILS % (AUTO) 80.8 % (43.0-81.0); PLATELET COUNT (AUTO) 385 /CMM (150-450); RDW COEFFICIENT OF VARIATION 15.8 (11.5-15.0); WHITE BLOOD COUNT (AUTO) 10.8 K/uL (4.3-11.0)
[2017-04-18 05:39] LABS: ALBUMIN 2.7 g/dL (3.4-5.0); BILIRUBIN,TOTAL 0.4 mg/dL (0.2-1.0); CALCIUM, SERUM 9.7 mg/dL (8.5-10.1); CREATININE 0.9 mg/dL (0.6-1.3); MAGNESIUM 2.4 mg/dL (1.8-2.4); PHOSPHORUS 3.3 mg/dL (2.5-4.9); POTASSIUM 3.2 mmol/L (3.5-5.1)
[2017-04-18] MEDS: INSULIN REGULAR, HUMAN 100 UNIT/ML 3 ML VIAL SQ PRN ×3 (06:08→17:43)
[2017-04-18] MEDS: BLOOD SUGAR DIAGNOSTIC 1 EACH STRIP IN SCH ×3 (06:09→17:32)
[2017-04-18] MEDS: PANTOPRAZOLE 40 MG VIAL IV SCH ×2 (08:25→17:29)
[2017-04-18] MEDS: ASPIRIN 300 MG/SUPP.RECT RC SCH (08:25)
[2017-04-18] MEDS: FLUTICASONE PROPIONATE 16 GM BOTTLE NS SCH ×2 (08:25→17:32)
[2017-04-18] MEDS ORDERED: POTASSIUM CHLORIDE 20 MEQ TAB.PRT.SR PO SCH (09:00)
[2017-04-18] MEDS: POTASSIUM CHLORIDE 20 MEQ POWDER PACKET GT SCH ×3 (10:51→16:36)
--- NOTE | 2017-04-18 12:52 | NUR ---
TUBE FILLER NOTE 0720: Received A/Ox3 patient, on 6LPM of O2 via NC, Sat 93%. NO respiratory distress noted at this time. Noted with episodes of coughing, nonproductive. Kept HOB elevated. NGT intact, clamped. SR 80's. Arellano noted with clear yellow urine drained to BSD. BUE midlines intact. 1030: S/E by Dr. Membreno, with order to may remove NGT ans ST for swallow eval. 1100: ST at bedside, said she may start on Pureed diabetic diet. 1130: Dr. Esquivel ordered to may transfer to [facility], CN aware. 1200: at bedside, aware for transfer order and plan of care, all questions and concerns were answered.
--- NOTE | 2017-04-18 15:47 | NUR ---
wilda note- received report from henry lopez for brayan
--- NOTE | 2017-04-18 16:37 | NUR ---
ULTRASOUND SPECIALIST NOTE 0600: Transferred patient o [facility], room 106, in good condition, VSS. Noted with 1BM, greenish in color, soft. No respiratory distress. Remained on 6LPM of O2 via NC, 95% O2 sat. Endorsed to Ana BARRON for NEELIMA. EGD plan tomorrow per Sera BAI, Patient agreed but said she will wait for her to sign the consent.
--- NOTE | 2017-04-18 19:20 | NUR ---
RN NOTE RECEIVED PT IN NO ACUTE DISTRESS IN BED. PT IS A/O X 3 AND ABLE TO MAKE NEEDS KNOWN. PT IS ON O2 VIA NC @ 6LPM AND TOLERATING WELL WITH O2 SAT @ 95%. PT NOT C/O ANY SOB ,DIFFICULTY BREATHING OR PAIN AT THIS TIME. PT HAS STEVE MIDLINE AND JULISA MIDLINE THAT ARE CLEAN DRY INTACT AND PATENT. PT HAS LHAND 20G THAT IS CLEAN DRY INTACT AND PATENT. BED IN LOW LOCK POSITION WITH RIALS UP X 2. ALL NEEDS MET, ALL ORDERS CARRIED OUT. WILL CONTINUE TO MONITOR PT.
[2017-04-18] MEDS: ENOXAPARIN SODIUM 40 MG/0.4 ML DISP.SYRIN SQ SCH (21:46)
[2017-04-19] VITALS: BP 144/54
[2017-04-19] MEDS: METOCLOPRAMIDE HCL 10 MG/2 ML VIAL IV SCH ×4 (00:21→16:59)
[2017-04-19] MEDS: PIPERACILLIN /TAZOBACTAM 3.375 G in IV NS 0.9% 50 ML IV SCH ×4 (00:22→18:19)
[2017-04-19] MEDS: BLOOD SUGAR DIAGNOSTIC 1 EACH STRIP IN SCH ×4 (00:22→17:35)
[2017-04-19] MEDS: INSULIN REGULAR, HUMAN 100 UNIT/ML 3 ML VIAL SQ PRN ×3 (00:31→17:38)
[2017-04-19] MEDS: ALBUTEROL FS 2.5 MG/0.5 ML VIAL.NEB NEB SCH ×4 (01:30→20:03)
[2017-04-19] MEDS: IPRATROPIUM NEB FS 0.5 MG/2.5 ML AMPUL.NEB NEB SCH ×4 (01:30→20:03)
[2017-04-19 04:00] VITALS: BP 155/55
[2017-04-19 06:14] LABS: BASOPHILS % (AUTO) 0.2 % (0.0-2.0); EOSINOPHILS # (AUTO) 0.1 /CMM (0.0-0.7); EOSINOPHILS % (AUTO) 0.7 % (0.0-6.0); HEMATOCRIT 35 % (33-45); HEMOGLOBIN 11.7 g/dL (11.5-14.8); LYMPHOCYTES # (AUTO) 1.5 /CMM (0.8-4.8); LYMPHOCYTES % (AUTO) 14.8 % (20.0-44.0); MEAN CORPUSCULAR HEMOGLOBIN 30 PG (26.0-33.0); MEAN CORPUSCULAR HGB CONC 33 g/dl (31.0-36.0); MEAN CORPUSCULAR VOLUME 89 fL (82-100); MONOCYTES # (AUTO) 0.8 /CMM (0.1-1.30); NEUTROPHILS # (AUTO) 7.5 /CMM (1.8-8.9); NEUTROPHILS % (AUTO) 76.3 % (43.0-81.0); PLATELET COUNT (AUTO) 365 /CMM (150-450); RDW COEFFICIENT OF VARIATION 15.8 (11.5-15.0); RED BLOOD CELL COUNT(AUTO) 3.95 MIL/uL (4.0-5.2); WHITE BLOOD COUNT (AUTO) 9.8 K/uL (4.3-11.0)
[2017-04-19 06:21] LABS: CALCIUM, SERUM 10.1 mg/dL (8.5-10.1); CREATININE 0.9 mg/dL (0.6-1.3); MAGNESIUM 2.1 mg/dL (1.8-2.4); POTASSIUM 3.2 mmol/L (3.5-5.1)
--- NOTE | 2017-04-19 07:33 | NUR ---
RN NOTE PT REMAINS IN NO ACUTE DISTRESS IN BED. PT DID NOT HAVE ANY SIGNIFICANT CHANGE IN CONDITION DURING SHIFT. PT AWAITING EGD PROCEDURE TODAY. ALL NEEDS MET, ALL ORDERS CARRIED OUT. WILL ENDORSE CARE TO AM RN FOR CONTINUITY OF CARE.
[2017-04-19 08:00] VITALS: BP 89/57
--- NOTE | 2017-04-19 08:00 | NUR ---
TD/RN AM SHIFT INITIAL NOTES RECEIVED PT AWAKE SITTING IN BED, PT A/O X 3, DENIES ANY SYMPTOMS AT THIS TIME. PLACE ON NPO FOR SCHEDULED EGD THIS MORNING. ON HUMIDIFIED O2 WITH 6L O2, SATURATING @ 96%, NOTED WITH NON-PRODUCTIVE COUGH, ON TELE WITH SINUS RHYTHM, HR 71, MIDLINE ON TKO, PATENT WITH NO S/S OF INFECTION. SALAS CATHETER INTACT, WITH YELLOW URINE OUTPUT. SCHEDULED AM MEDS TO BE GIVEN. CL WITHIN REACHED AND SAFETY MAINTAINED. ON GOING MONITORING. PT SEEN BRIEFLY BY DR. ABDALLA, NO NEW ORDERS RECEIVED AT THIS TIME.
--- NOTE | 2017-04-19 08:45 | NUR ---
TD/RN OR - EGD PT LEFT TD UNIT VIA [facility] FOR EGD.
[2017-04-19] MEDS: ASPIRIN 300 MG/SUPP.RECT RC SCH (09:00)
[2017-04-19] MEDS: PANTOPRAZOLE 40 MG VIAL IV SCH ×2 (10:32→16:58)
[2017-04-19] MEDS: POTASSIUM CL. PREMIX PERIPHER. 50 ML IV SCH ×5 (10:32→21:51)
[2017-04-19] MEDS: FLUTICASONE PROPIONATE 16 GM BOTTLE NS SCH ×2 (10:42→16:59)
[2017-04-19] MEDS: HYDROMORPHONE INJ 0.5 MG/0.5 ML SYRINGE IV PRN ×2 (11:24→19:04)
--- NOTE | 2017-04-19 11:30 | NUR ---
TELE1/RN BACK FROM OR PT RETURNED TO [facility] FLOOR VIA [facility] S/P EGD. MONITORING CONTINUED.
[2017-04-19 12:00] VITALS: BP 129/65
--- NOTE | 2017-04-19 12:45 | NUR ---
TELE1/RN ROUNDS - DR. PAL PT SEEN & EXAMINED BY DR. PAL, WITH NEW ORDER RECEIVED FOR MUCINEX BID. NOTED AND CARRIED.
[2017-04-19] MEDS: GUAIFENESIN LA 600 MG TABLET.SA PO SCH ×2 (13:11→21:53)
[2017-04-19 18:00] VITALS: BP 137/70
[2017-04-19] MEDS: SUCRALFATE 1 G/10 ML UDC GT SCH ×2 (18:19→21:52)
--- NOTE | 2017-04-19 19:31 | NUR ---
TELE1/RN AM SHIFT END NOTES NO ACUTE CHANGE OF CONDITION NOTED DURING THE SHIFT. NEEDS MET. PT ENDORSED TO PM NURSE TO CONTINUE CARE. CL WITHIN REACHED AND SAFETY MAINTAINED.
[2017-04-19 20:00] VITALS: BP 128/55
--- NOTE | 2017-04-19 20:00 | NUR ---
RN TEL INITIAL NOTES RECEIVED PT AWAKE SITTING IN BED, PT A/O X 3, DENIES ANY DISCOMFORT AT THIS TIME. ALL NEEDS MET, ENDORSED BY AM SHIFT TO CONT RUNNING KCL, 2 BAG MORE SCHEDULED FOR 5PM. ON HUMIDIFIED O2 WITH 6L O2, SATURATING @ 96%, NOTED WITH NON-PRODUCTIVE COUGH, ON TELE WITH SINUS RHYTHM, HR 71, MIDLINE ON TKO, PATENT WITH NO S/S OF INFECTION. SALAS CATHETER INTACT, WITH YELLOW URINE OUTPUT. SCHEDULED AM MEDS TO BE GIVEN. CL WITHIN REACHED AND SAFETY MAINTAINED. ON GOING MONITORING.
[2017-04-19] MEDS: ENOXAPARIN SODIUM 40 MG/0.4 ML DISP.SYRIN SQ SCH (21:52)
[2017-04-20] VITALS: BP 138/53
--- NOTE | 2017-04-20 | NUR ---
SOCIAL WORK MSW NOTE RECEIVED REPORT FROM GERALDINE BARRON FOR CONTINUITY OF CARE.
[2017-04-20] MEDS: BLOOD SUGAR DIAGNOSTIC 1 EACH STRIP IN SCH ×4 (00:14→17:41)
[2017-04-20] MEDS: PIPERACILLIN /TAZOBACTAM 3.375 G in IV NS 0.9% 50 ML IV SCH ×2 (00:14→05:46)
[2017-04-20] MEDS: POTASSIUM CL. PREMIX PERIPHER. 50 ML IV SCH (00:14)
[2017-04-20] MEDS: METOCLOPRAMIDE HCL 10 MG/2 ML VIAL IV SCH ×4 (00:15→17:41)
[2017-04-20] MEDS: INSULIN REGULAR, HUMAN 100 UNIT/ML 3 ML VIAL SQ PRN ×4 (00:25→17:44)
[2017-04-20] MEDS: ALBUTEROL FS 2.5 MG/0.5 ML VIAL.NEB NEB SCH ×4 (01:30→19:38)
[2017-04-20] MEDS: IPRATROPIUM NEB FS 0.5 MG/2.5 ML AMPUL.NEB NEB SCH ×4 (01:30→19:39)
[2017-04-20 04:00] VITALS: BP 103/61
[2017-04-20 06:54] LABS: CALCIUM, SERUM 9.9 mg/dL (8.5-10.1); CREATININE 0.8 mg/dL (0.6-1.3); MAGNESIUM 1.7 mg/dL (1.8-2.4); POTASSIUM 3.4 mmol/L (3.5-5.1)
--- NOTE | 2017-04-20 06:56 | NUR ---
MOLD CONSTRUCTION SUPERVISOR CLOSING NOTE REMAINED STABLE DURING SHIFT. NO ACUTE DISTRESS NOTED. ALL NEEDS ATTENDED TO PROMPTLY. KEPT CLEAN AND DRY. ALL DUE MEDS GIVEN ORDERED AND WELL TOLERATED. HOB ELEVATED. CALL LIGHT WITHIN REACH. WILL ENDORSE TO NEXT SHIFT FOR CONTINUITY OF CARE.
[2017-04-20 07:00] LABS: BASOPHILS # (AUTO) 0.1 /CMM (0.0-0.2); BASOPHILS % (AUTO) 0.6 % (0.0-2.0); EOSINOPHILS # (AUTO) 0.2 /CMM (0.0-0.7); EOSINOPHILS % (AUTO) 1.7 % (0.0-6.0); HEMATOCRIT 32 % (33-45); HEMOGLOBIN 10.7 g/dL (11.5-14.8); LYMPHOCYTES # (AUTO) 1.4 /CMM (0.8-4.8); LYMPHOCYTES % (AUTO) 15.8 % (20.0-44.0); MEAN CORPUSCULAR HEMOGLOBIN 30 PG (26.0-33.0); MEAN CORPUSCULAR HGB CONC 33 g/dl (31.0-36.0); MEAN CORPUSCULAR VOLUME 90 fL (82-100); MONOCYTES # (AUTO) 0.5 /CMM (0.1-1.30); NEUTROPHILS # (AUTO) 6.9 /CMM (1.8-8.9); NEUTROPHILS % (AUTO) 75.9 % (43.0-81.0); PLATELET COUNT (AUTO) 325 /CMM (150-450); RDW COEFFICIENT OF VARIATION 15.7 (11.5-15.0); RED BLOOD CELL COUNT(AUTO) 3.59 MIL/uL (4.0-5.2); WHITE BLOOD COUNT (AUTO) 9.1 K/uL (4.3-11.0)
--- NOTE | 2017-04-20 07:47 | NUR ---
RN NOTE:(INITIAL) PATIENT RECEIVED ASLEEP, EASILY AROUSED. ON 6LPM OXYGEN THERAPY VIA NC . NO BREATHING DIFFICULTY NOTED. DENIES CHEST PAIN & DISCOMFORT. ON TELE MONITOR SINUS RHYTHM. IV CATHETER & SALAS CATHETER INTACT, DRAINING WITH GRAVITY. SAFETY MEASURES OBSERVED. CALL LIGHT WITHIN REACH. WILL CONTINUE TO MONITOR. Addendum: 04/20/17 at 1102 by SHARYN CRAIN RN RECEIVED ON 4LPM OXYGEN. NOT ON 6LPM O2.
[2017-04-20] MEDS: HYDROMORPHONE INJ 0.5 MG/0.5 ML SYRINGE IV PRN ×2 (07:59→16:07)
[2017-04-20 08:00] VITALS: BP 158/76
[2017-04-20] MEDS: SUCRALFATE 1 G/10 ML UDC GT SCH ×4 (08:27→21:47)
[2017-04-20] MEDS: GUAIFENESIN LA 600 MG TABLET.SA PO SCH ×2 (08:27→21:46)
[2017-04-20] MEDS: PANTOPRAZOLE 40 MG VIAL IV SCH ×2 (08:27→17:41)
[2017-04-20] MEDS: ASPIRIN EC 325 MG TABLET.DR PO SCH (08:27)
[2017-04-20] MEDS: FLUTICASONE PROPIONATE 16 GM BOTTLE NS SCH ×2 (08:29→17:42)
[2017-04-20 08:30] VITALS: BP 146/66
[2017-04-20] MEDS: Magnesium 1GM/D5W 100ML PREMIX 100 ML IV SCH ×2 (10:53→12:24)
[2017-04-20] MEDS: POTASSIUM CHLORIDE 20 MEQ TAB.PRT.SR PO SCH ×2 (10:53→12:22)
[2017-04-20 16:00] VITALS: BP 130/69
[2017-04-20] MEDS: GABAPENTIN 300 MG CAPSULE PO SCH (16:07)
--- NOTE | 2017-04-20 18:56 | NUR ---
RN NOTE: NO SIGNIFICANT CHANGES NOTED DURING SHIFT. SAFETY MEASURES OBSERVED. CALL LIGHT WITHIN REACH. WILL ENDORSE TO PM SHIFT FOR CONTINUITY OF CARE.
[2017-04-20 20:00] VITALS: BP 135/70
[2017-04-20] MEDS: ENOXAPARIN SODIUM 40 MG/0.4 ML DISP.SYRIN SQ SCH (21:47)
[2017-04-21] MEDS: METOCLOPRAMIDE HCL 10 MG/2 ML VIAL IV SCH ×2 (00:27→05:43)
[2017-04-21] MEDS: BLOOD SUGAR DIAGNOSTIC 1 EACH STRIP IN SCH ×4 (00:34→17:13)
[2017-04-21] MEDS: IPRATROPIUM NEB FS 0.5 MG/2.5 ML AMPUL.NEB NEB SCH ×4 (00:46→19:09)
[2017-04-21] MEDS: ALBUTEROL FS 2.5 MG/0.5 ML VIAL.NEB NEB SCH ×4 (00:46→19:09)
[2017-04-21] MEDS: HYDROMORPHONE INJ 0.5 MG/0.5 ML SYRINGE IV PRN (03:21)
[2017-04-21 04:00] VITALS: BP 138/74
[2017-04-21] MEDS: INSULIN REGULAR, HUMAN 100 UNIT/ML 3 ML VIAL SQ PRN ×3 (06:21→17:24)
[2017-04-21 06:41] LABS: CALCIUM, SERUM 9.6 mg/dL (8.5-10.1); CREATININE 0.8 mg/dL (0.6-1.3); POTASSIUM 3.6 mmol/L (3.5-5.1)
[2017-04-21 06:48] LABS: BASOPHILS # (AUTO) 0.1 /CMM (0.0-0.2); BASOPHILS % (AUTO) 0.5 % (0.0-2.0); EOSINOPHILS # (AUTO) 0.2 /CMM (0.0-0.7); EOSINOPHILS % (AUTO) 1.6 % (0.0-6.0); HEMATOCRIT 34 % (33-45); HEMOGLOBIN 11.5 g/dL (11.5-14.8); LYMPHOCYTES # (AUTO) 1.5 /CMM (0.8-4.8); LYMPHOCYTES % (AUTO) 14.7 % (20.0-44.0); MEAN CORPUSCULAR HEMOGLOBIN 30 PG (26.0-33.0); MEAN CORPUSCULAR HGB CONC 34 g/dl (31.0-36.0); MEAN CORPUSCULAR VOLUME 89 fL (82-100); MONOCYTES # (AUTO) 0.5 /CMM (0.1-1.30); MONOCYTES % (AUTO) 5.4 % (2.0-12.0); NEUTROPHILS # (AUTO) 7.9 /CMM (1.8-8.9); NEUTROPHILS % (AUTO) 77.8 % (43.0-81.0); PLATELET COUNT (AUTO) 347 /CMM (150-450); RED BLOOD CELL COUNT(AUTO) 3.84 MIL/uL (4.0-5.2); WHITE BLOOD COUNT (AUTO) 10.1 K/uL (4.3-11.0)
--- NOTE | 2017-04-21 07:30 | NUR ---
MS RN OPENING NOTES RECEIVED PATIENT IN STABLE CONDITION. IN NO APPARENT DISTRESS. BEDSIDE RAILS ARE UPX2. BED IS LOCKED AND LOWERED. CALL LIGHT IS WITHIN REACH. WILL CONTINUE TO MONITOR.
[2017-04-21] MEDS: GABAPENTIN 300 MG CAPSULE PO SCH ×3 (09:34→17:12)
[2017-04-21] MEDS: ASPIRIN EC 325 MG TABLET.DR PO SCH (09:34)
[2017-04-21] MEDS: PANTOPRAZOLE 40 MG VIAL IV SCH ×2 (09:34→17:12)
[2017-04-21] MEDS: GUAIFENESIN LA 600 MG TABLET.SA PO SCH ×2 (09:34→21:12)
[2017-04-21] MEDS: SUCRALFATE 1 G/10 ML UDC GT SCH ×4 (09:34→21:12)
[2017-04-21] MEDS: FLUTICASONE PROPIONATE 16 GM BOTTLE NS SCH ×2 (09:35→17:12)
[2017-04-21 12:00] VITALS: BP 140/71
[2017-04-21] MEDS: LOSARTAN/HCTZ 50-12.5MG/ 1 EA TABLET PO SCH (12:43)
--- NOTE | 2017-04-21 13:00 | NUR ---
CALLED PHARMACY TO PROVIDE REGLAN. WILL ADMINISTER ONCE PHARMACY PROVIDES.
--- NOTE | 2017-04-21 18:30 | NUR ---
MS RN CLOSING NOTES PATIENT IS RESTING IN BED IN NO APPARENT DISTRESS. BEDSIDE RAILS ARE UPX2. BED IS LOCKED AND LOWERED. CALL LIGHT IS WITHIN REACH. WILL ENDORSE CARE TO FLOOR COVERING CONTRACTOR NURSE FOR NEELIMA.
--- NOTE | 2017-04-21 19:30 | NUR ---
MS RN INITIAL NOTE PT RECEIVED ASLEEP IN BED BUT EASILY AROUSABLE. A/O X3 AND ABLE TO VERBALIZE NEEDS. ON 4L OF O2 VIA NC AND SATURATING 94%. NOTED WITH A NON PRODUCTIVE COUGH AND HAS SCHEDULED/ PRN BREATHING TREATMENTS IN WHICH SHE VERBALIZES HELP HER BREATHING. BREATHING REGULAR AND UNLABORED AT THIS TIME. IV JULISA MIDLINE CLEAN, PATENT AND FLUSHING WELL. SALAS CATHETER IN PLACE AND DRAINING CLEAR, YELLOW URINE BY GRAVITY. CALL LIGHT WITHIN REACH. WILL CONTINUE TO MONITOR.
[2017-04-21 20:00] VITALS: BP 148/63
[2017-04-21] MEDS: ENOXAPARIN SODIUM 40 MG/0.4 ML DISP.SYRIN SQ SCH (21:16)
[2017-04-22] MEDS: IPRATROPIUM NEB FS 0.5 MG/2.5 ML AMPUL.NEB NEB SCH ×4 (00:35→19:35)
[2017-04-22] MEDS: ALBUTEROL FS 2.5 MG/0.5 ML VIAL.NEB NEB SCH ×4 (00:35→19:35)
[2017-04-22] MEDS: BLOOD SUGAR DIAGNOSTIC 1 EACH STRIP IN SCH ×5 (00:46→23:02)
[2017-04-22] MEDS: INSULIN REGULAR, HUMAN 100 UNIT/ML 3 ML VIAL SQ PRN ×5 (00:48→23:09)
[2017-04-22] MEDS: HYDROMORPHONE INJ 0.5 MG/0.5 ML SYRINGE IV PRN (00:50)
[2017-04-22 04:00] VITALS: BP 144/80
--- NOTE | 2017-04-22 07:33 | NUR ---
MS RN CLOSING NOTE PT REMAINED STABLE DURING SHIFT. NO ACUTE DISTRESS NOTED. ALL NEEDS ATTENDED TO PROMPTLY. KEPT CLEAN AND DRY. CALL LIGHT WITHIN REACH. WILL ENDORSE TO NEXT SHIFT FOR CONTINUITY OF CARE.
[2017-04-22 08:00] VITALS: BP 112/52
[2017-04-22] MEDS: SUCRALFATE 1 G/10 ML UDC GT SCH ×4 (08:33→21:01)
[2017-04-22] MEDS: ASPIRIN EC 325 MG TABLET.DR PO SCH (08:33)
[2017-04-22] MEDS: ATORVASTATIN 10 MG TABLET PO SCH (08:33)
[2017-04-22] MEDS: GUAIFENESIN LA 600 MG TABLET.SA PO SCH ×2 (08:33→20:35)
[2017-04-22] MEDS: LOSARTAN/HCTZ 50-12.5MG/ 1 EA TABLET PO SCH (08:33)
[2017-04-22] MEDS: GABAPENTIN 300 MG CAPSULE PO SCH ×3 (08:33→17:16)
[2017-04-22] MEDS: FLUTICASONE PROPIONATE 16 GM BOTTLE NS SCH ×2 (08:35→17:18)
[2017-04-22] MEDS: PANTOPRAZOLE 40 MG VIAL IV SCH ×2 (08:46→17:20)
--- NOTE | 2017-04-22 13:30 | NUR ---
m/s bone char kiln tender: p.t. eval p.t. eval done in room at this time.
[2017-04-22 16:00] VITALS: BP 136/71
--- NOTE | 2017-04-22 19:30 | NUR ---
MS RN NOTES: RECEIVED PT IN BED IS ON 3LPM VIA NC AND IS TOLERATING WELL. PT VOICED THAT SHE WOULD LIKE TO GET SOME SLEEP TONIGHT. PT HAS JULISA MIDLINE #18G AND IS PATENT AND INTACT. CURRENTLY S/L. CALL LIGHT WITHIN PT'S REACH. BED KEPT IN LOW, LOCKED POSITION, AND SIDE RAILS X 3 UP. WILL CONTINUE TO MONITOR PT.
[2017-04-22 20:00] VITALS: BP 141/64
[2017-04-22] MEDS: ENOXAPARIN SODIUM 40 MG/0.4 ML DISP.SYRIN SQ SCH (20:36)
--- NOTE | 2017-04-22 23:15 | NUR ---
MS RN NOTES: BLOOD SUGAR WAS 174. 3 UNITS OF INSULIN WAS ADMINISTERED. WILL CONTINUE TO MONITOR PT.
[2017-04-23] MEDS: ALBUTEROL FS 2.5 MG/0.5 ML VIAL.NEB NEB SCH ×4 (01:30→19:41)
[2017-04-23] MEDS: IPRATROPIUM NEB FS 0.5 MG/2.5 ML AMPUL.NEB NEB SCH ×4 (01:30→19:41)
--- NOTE | 2017-04-23 02:01 | NUR ---
PT REQUESTED NOT TO BE WOKEN UP FOR RESP TX AT THIS TIME. PT IS ASLEEP AND IN NO RESP DISTRESS. Addendum: 04/23/17 at 0201 by BRIAN SEGURA RT Amended: Links added.
[2017-04-23 04:00] VITALS: BP 155/71
[2017-04-23] MEDS: BLOOD SUGAR DIAGNOSTIC 1 EACH STRIP IN SCH ×4 (05:16→23:05)
[2017-04-23] MEDS: INSULIN REGULAR, HUMAN 100 UNIT/ML 3 ML VIAL SQ PRN ×4 (05:26→23:11)
--- NOTE | 2017-04-23 05:26 | NUR ---
MS RN NOTES: BLOOD SUGAR WAS 190. 3 UNITS OF INSULIN WAS ADMINISTERED. SNACK WAS PROVIDED. WILL CONTINUE TO MONITOR PT.
--- NOTE | 2017-04-23 06:56 | NUR ---
MS RN CLOSING NOTES: ALL NEEDS WERE ATTENDED AND ANTICIPATED. PT KEPT, CLEAN, DRY AND COMFORTABLE. PT ON 3LPM VIA NC AND IS TOLERATING WELL. PT IS AWAKE AT THIS TIME WATCHING TELEVISION. PT IS A/OX3. PT HAS SALAS CATH AND IS ATTACHED TO DRAINAGE BAG WITH YELLOW URINE DRAINING. OUTPUT IS 1250ML. PT HAS JULISA MIDLINE #18G AND IS PATENT AND INTACT. CURRENTLY S/L. CALL LIGHT WITHIN PT' REACH. BED KEPT IN LOCKED POSITION, AND SIDE RAILS X 3UP. WILL ENDORSE TO AM NURSE FOR NEELIMA.
--- NOTE | 2017-04-23 07:25 | NUR ---
MS RN OPENING NOTES: PT RECEIVED ASLEEP COMFORTABLY IN BED, EASILY AROUSABLE DURING CARE. RESPIRATIONS EVEN AND UNLABORED, ABLE TO MAKE NEEDS KNOWN. PT ON 3LPM VIA NC AND IS TOLERATING WELL. PT IS A/OX3. PT HAS SALAS CATH AND IS ATTACHED TO DRAINAGE BAG WITH YELLOW URINE DRAINING. PT HAS JULISA MIDLINE #18G AND IS PATENT AND INTACT. CURRENTLY S/L. CALL LIGHT WITHIN PT' REACH. BED KEPT IN LOCKED POSITION, AND SIDE RAILS X 3. WILL CONTINUE TO MONITOR
[2017-04-23 08:00] VITALS: BP 140/63
[2017-04-23] MEDS: LOSARTAN/HCTZ 50-12.5MG/ 1 EA TABLET PO SCH (09:02)
[2017-04-23] MEDS: PANTOPRAZOLE 40 MG VIAL IV SCH ×2 (09:02→16:53)
[2017-04-23] MEDS: ATORVASTATIN 10 MG TABLET PO SCH (09:03)
[2017-04-23] MEDS: GABAPENTIN 300 MG CAPSULE PO SCH (09:03)
[2017-04-23] MEDS: GUAIFENESIN LA 600 MG TABLET.SA PO SCH ×2 (09:03→21:04)
[2017-04-23] MEDS: ASPIRIN EC 325 MG TABLET.DR PO SCH (09:03)
[2017-04-23] MEDS: FLUTICASONE PROPIONATE 16 GM BOTTLE NS SCH ×2 (09:04→16:50)
[2017-04-23] MEDS: SUCRALFATE 1 G/10 ML UDC GT SCH ×4 (09:05→21:06)
[2017-04-23] MEDS ORDERED: PNEUMOCOCCAL 23-VAL P-SAC VAC 0.5 ML VIAL SQ ONE (12:30)
--- NOTE | 2017-04-23 13:00 | NUR ---
RN NOTES PATIENTS O2 SAT NOTED AT 86% ON ROOM AIR UPON AMBULATION, AND AT 88% AT REST, PER MD CONTINUE O2 PRN WILL CONTINUE TO MONITOR
[2017-04-23] MEDS: GABAPENTIN 400 MG CAPSULE PO SCH ×2 (13:02→16:51)
--- NOTE | 2017-04-23 14:00 | NUR ---
RN NOTES PT WITH MULTIPLE BOWEL MOVEMENT, STOOL NOTED SOFT IN CONSISTENCY DR. ABDALLA MADE AWARE, PER PROTOCOL CANCEL STOOL SAMPLE NOT TO BE COLLECTED AND CANCELLED, WILL CONTINUE TO MONITOR
[2017-04-23 16:00] VITALS: BP 153/61
--- NOTE | 2017-04-23 16:07 | NUR ---
PATIENT ROOM AIR SAT 86%
--- NOTE | 2017-04-23 18:51 | NUR ---
MS RN CLOSING NOTES: PT AWAKE ALERT AND VERBALLY RESPONSIVE ABLE TO MAKE NEEDS KNOWN. RESPIRATIONS EVEN AND UNLABORED, ABLE TO MAKE NEEDS KNOWN. PT ON 3LPM VIA NC AND IS TOLERATING WELL. PT IS A/OX3. PT HAS SALAS CATH AND IS ATTACHED TO DRAINAGE BAG WITH YELLOW URINE DRAINING. PT HAS JULISA MIDLINE #18G AND IS PATENT AND INTACT. CURRENTLY S/L. CALL LIGHT WITHIN PT' REACH. BED KEPT IN LOCKED POSITION, AND SIDE RAILS X 3. WILL CONTINUE TO MONITOR AND ENDORSE TO NEXT SHIFT FOR CONTINUITY OF CARE
--- NOTE | 2017-04-23 19:00 | NUR ---
RN NOTES AWAITING PNEUMO VACCINE CALLED PHARMACY PER DESIRE, WILL SEND FOR ADMINISTRATION
--- NOTE | 2017-04-23 19:30 | NUR ---
MS RN NOTES RECEIVED ON BARIATRIC BED,A/O X3-4,BREATHING NON LABORED,O2 AT 4L/TO KEEP O2 SAT ABOVE 90%,O2 SAT 87% AT THIS TIME.WITH JULISA MIDLINE FOR MEDS.SALAS CATH IN PLACE DRAINING CLEAR URINE OUTPUT.CALL LIGHT IN REACH.WILL CONTINUE TO MONITOR STATUS.
[2017-04-23 20:00] VITALS: BP 133/59
[2017-04-23] MEDS: ENOXAPARIN SODIUM 40 MG/0.4 ML DISP.SYRIN SQ SCH (21:04)
[2017-04-23] MEDS: LOPERAMIDE HCL (2 MG CAP) 2 MG CAPSULE PO PRN (21:09)
--- NOTE | 2017-04-23 21:09 | NUR ---
MS RN NOTES REPORTED BY DAY NURSE,PATIENT HAD 4X SOFT BM AND ASKED FOR MEDS FOR LOOSE BM.MEDICATED WITH IMMODIUM 2MG PO ORDERED.DEEPALI CONTINUE TO MONITOR FOR LOOSE BM.
[2017-04-23] MEDS: HYDROMORPHONE INJ 0.5 MG/0.5 ML SYRINGE IV PRN (21:16)
--- NOTE | 2017-04-23 21:16 | NUR ---
MS RN NOTES PAIN MANAGEMENT C/O LOWER BACK 8/10 ON PAIN SCALE,MEDICATED WITH DILAUDID 1MG IV ORDERED.
[2017-04-23 22:26] VITALS: BP 133/59
--- NOTE | 2017-04-23 23:00 | NUR ---
MS RN NOTES AWAKE,CLAIMED SHE'S BETTER WITH PAIN MANAGEMENT
--- NOTE | 2017-04-23 23:00 | NUR ---
MS RN NOTES NOTED ON AND OFF PRODUCTIVE COUGH,ABLE TO EXPECTORATE PLEGMN,WITH BREATHING TREATMENT Q 6 BY RT
--- NOTE | 2017-04-23 23:15 | NUR ---
MS RN NOTES ACCU-CHECK BLOOD SUGAR CHECK 213,COVERED WITH HUMULIN R 4 UNITS PER SLIDING SCALE.
[2017-04-24] VITALS: BP 122/56
[2017-04-24] MEDS: ALBUTEROL FS 2.5 MG/0.5 ML VIAL.NEB NEB SCH ×4 (01:06→19:59)
[2017-04-24] MEDS: IPRATROPIUM NEB FS 0.5 MG/2.5 ML AMPUL.NEB NEB SCH ×4 (01:06→19:59)
[2017-04-24] MEDS: LOPERAMIDE HCL (2 MG CAP) 2 MG CAPSULE PO PRN ×5 (01:09→21:10)
--- NOTE | 2017-04-24 01:09 | NUR ---
MS RN NOTES MEDICATED WITH IMMODIUM 2MG PO PER PATIENT REQUEST.NO LOOSE BM BUT PATIENT WANTS TO FORMED UP HER BOWEL BEFORE GOING HOME.
[2017-04-24 03:55] VITALS: BP 129/61
[2017-04-24 04:00] VITALS: BP 129/61
--- NOTE | 2017-04-24 04:00 | NUR ---
MS RN NOTES SLEEPING,KEPT WARM AND COMFORTABLE.
[2017-04-24] MEDS: BLOOD SUGAR DIAGNOSTIC 1 EACH STRIP IN SCH ×4 (06:07→22:12)
[2017-04-24] MEDS: INSULIN REGULAR, HUMAN 100 UNIT/ML 3 ML VIAL SQ PRN ×3 (06:11→17:22)
--- NOTE | 2017-04-24 06:33 | NUR ---
MS RN NOTES AWAKE AND HAS FEELING HAVING BOWEL MOVEMENT.ASKING FOR ANOTHER IMMODIUM BUT SHE DENIES HAVING LOOSE BM THE WHOLE NIGHT.EXPLAINED THAT SHE'S GOING TO HAVE CONSTIPATION , SHE HAD 2 DOSES ALREADY.
--- NOTE | 2017-04-24 06:48 | NUR ---
MS RN NOTES ON BED A/O X3,SLEPT WITH INTERVALS,MEDICATED X2 WITH IMMODIUM,NO BM THRU OUT SHIFT.NO SOB NOTED.CALL LIGHT IN REACH,NEEDS ATTENDED.WILL ENDORSE TO DAY NURSE FOR NEELIMA.
[2017-04-24] MEDS: SUCRALFATE 1 G/10 ML UDC GT SCH ×4 (07:32→21:10)
[2017-04-24 08:00] VITALS: BP 148/65
--- NOTE | 2017-04-24 08:00 | NUR ---
M/S RN - AM Assessment Patient in bed awake, A/O x 4, denies chest pain, no c/o SOB, no evidence of resp. distress, on 4lpm via NC. JULISA midline is patent, intact, with no signs of infiltration. Skin noted with sacral redness, zguard applied for moisture control, assisted with repositioning for skin management. Arellano catheter in place draining clear yellow urine. All needs anticipated and met. Fall precautions maintained. Will continue with current plan of care.
[2017-04-24] MEDS: GUAIFENESIN LA 600 MG TABLET.SA PO SCH ×2 (08:05→21:10)
[2017-04-24] MEDS: GABAPENTIN 400 MG CAPSULE PO SCH ×3 (08:05→16:07)
[2017-04-24] MEDS: ASPIRIN EC 325 MG TABLET.DR PO SCH (08:05)
[2017-04-24] MEDS: ATORVASTATIN 10 MG TABLET PO SCH (08:05)
[2017-04-24] MEDS: PANTOPRAZOLE 40 MG VIAL IV SCH ×2 (08:06→16:06)
[2017-04-24] MEDS: FLUTICASONE PROPIONATE 16 GM BOTTLE NS SCH ×2 (08:06→16:41)
[2017-04-24] MEDS: LOSARTAN/HCTZ 50-12.5MG/ 1 EA TABLET PO SCH (08:06)
--- NOTE | 2017-04-24 09:00 | NUR ---
M/S RN - Notes PNA vaccine administered on the left deltoid, with no adverse reaction seen, lot# [id number] exp 07/05/18.
[2017-04-24] MEDS: METFORMIN 500 MG TABLET PO SCH ×2 (09:15→16:40)
[2017-04-24] MEDS: HYDROMORPHONE INJ 0.5 MG/0.5 ML SYRINGE IV PRN (11:44)
[2017-04-24 16:00] VITALS: BP 122/56
--- NOTE | 2017-04-24 19:09 | NUR ---
M/S RN - Closing Notes Patient resting in bed in no acute distress. Home oxygen arranged with [facility] [phone]. Patient requesting for home health as well, will notify Dr. Membreno. Anticipate discharge home tomorrow if she continues to be stable. Will continue with current plan of care.
[2017-04-24 20:00] VITALS: BP 112/51
--- NOTE | 2017-04-24 20:00 | NUR ---
RECEIVED PATIENT IN BED, AAO X4, VSS, AFEBRILE DENIES PAIN AT THIS TIME, NO DISTRESS NOTED , SATURATION 94% ON 4L NC , SAFETY MEASURES IMPLEMENTED INSTRUCTED TO CALL FOR ANY ASSISTANCE. CONTINUE TO MONITOR
--- NOTE | 2017-04-24 21:00 | NUR ---
SCHEDUALED MEDICATIONS GIVEN WELL IMODIUM PER PATIENT'S REQUEST PATIENT C/O OF ABDOMINAL DISCOMFORT ACCUCHECK 170 AT THIS TIME, NO COVERAGE- PATIENT REFUSED
[2017-04-24] MEDS: ENOXAPARIN SODIUM 40 MG/0.4 ML DISP.SYRIN SQ SCH (21:12)
[2017-04-25] MEDS: IPRATROPIUM NEB FS 0.5 MG/2.5 ML AMPUL.NEB NEB SCH ×2 (01:42→07:27)
[2017-04-25] MEDS: ALBUTEROL FS 2.5 MG/0.5 ML VIAL.NEB NEB SCH ×2 (01:42→07:27)
--- NOTE | 2017-04-25 07:30 | NUR ---
M/S RN - AM NOTE PATIENT RECEIVED RESTING COMFORTABLY IN BED, SPEECH CLEAR, AOX3, ABLE TO MAKE NEEDS KNOWN. DENIES ANY CARDIAC OR RESPIRATORY DISTRESS ON 4L NC. JULISA MIDLINE SITE IS [employer] DRESSING. SALAS CATHETER DRAINING CLEAR YELLOW URINE. sKIN IS DRY, NOTED SACRAL REDNESS INSTRUCTED ON POSITIONING AND Z GUARD APPLIED. BED IS LOCKED IN LOW POSITION, SAFETY MAINTAINED. NO VOICED CONCERNS CURRENTLY.
[2017-04-25] MEDS: BLOOD SUGAR DIAGNOSTIC 1 EACH STRIP IN SCH (07:34)
[2017-04-25] MEDS: SUCRALFATE 1 G/10 ML UDC GT SCH ×2 (07:35→11:26)
[2017-04-25] MEDS: INSULIN REGULAR, HUMAN 100 UNIT/ML 3 ML VIAL SQ PRN (07:35)
[2017-04-25] MEDS: LOPERAMIDE HCL (2 MG CAP) 2 MG CAPSULE PO PRN (07:36)
[2017-04-25 08:00] VITALS: BP 104/68
[2017-04-25] MEDS: HYDROMORPHONE INJ 0.5 MG/0.5 ML SYRINGE IV PRN (08:01)
[2017-04-25] MEDS: PANTOPRAZOLE 40 MG VIAL IV SCH (08:01)
[2017-04-25] MEDS: GABAPENTIN 400 MG CAPSULE PO SCH ×2 (08:04→12:26)
[2017-04-25] MEDS: ATORVASTATIN 10 MG TABLET PO SCH (08:04)
[2017-04-25] MEDS: GUAIFENESIN LA 600 MG TABLET.SA PO SCH (08:05)
[2017-04-25] MEDS: ASPIRIN EC 325 MG TABLET.DR PO SCH (08:05)
[2017-04-25] MEDS: METFORMIN 500 MG TABLET PO SCH (08:05)
[2017-04-25] MEDS: FLUTICASONE PROPIONATE 16 GM BOTTLE NS SCH (08:06)
[2017-04-25 08:07] VITALS: BP 104/68
[2017-04-25] MEDS: LOSARTAN/HCTZ 50-12.5MG/ 1 EA TABLET PO SCH (08:07)
--- NOTE | 2017-04-25 12:35 | NUR ---
MS DISCHARGE NOTE PATIENT DISCHARGED HOME WITH HOME HEALTH SERVICES WITH [facility], PT SIGNED ALL CONSENTS, PROVIDED WITH DISCHARGE PAPERWORK ALONG WITH TEACHING. IV REMOVED AND SALAS CATHETER REMOVED. PT VOIDED. REVIEWED MEDICATION LIST WITH PT, VERBALIZED UNDERSTANDING. PROVIDED WITH OXYGEN TANK TO BRING HOME. BELONGINGS PROVIDED TO PT, PT SIGNED BELONGINGS LIST. PICKED UP BY BRIAN ESCORTED BY CUSTOMER COUNTER ASSOCIATE VIA WHEELCHAIR TO A CAR.
== END 2017-04-25 12:47 | disposition home health service (06) | DRG 870 ==
LOC: ER 19:33 → ICU 21:15 → TELE-TD 04-18 16:11 → TELE1 04-19 10:06 → MEDSG1 04-20 11:11
PROVIDERS: ADMIT Legal Medicine; ATTEND Legal Medicine
PROC: 5A1955Z Respiratory Ventilation, Greater than 96 Consecutive Hours (ICD-10-PCS; principal; 2017-04-08)
PROC: 0BH18EZ Insertion of Endotracheal Airway into Trachea, Via Natural or Artificial Opening Endoscopic (ICD-10-PCS; 2017-04-08)
PROC: 05H633Z Insertion of Infusion Device into Left Subclavian Vein, Percutaneous Approach (ICD-10-PCS; 2017-04-09)
PROC: B547ZZA Ultrasonography of Left Subclavian Vein, Guidance (ICD-10-PCS; 2017-04-09)
PROC: 05H533Z Insertion of Infusion Device into Right Subclavian Vein, Percutaneous Approach (ICD-10-PCS; 2017-04-16)
PROC: B546ZZA Ultrasonography of Right Subclavian Vein, Guidance (ICD-10-PCS; 2017-04-16)
PROC: 0DD78ZX Extraction of Stomach, Pylorus, Via Natural or Artificial Opening Endoscopic, Diagnostic (ICD-10-PCS; 2017-04-19)
DX: A41.9 Sepsis, unspecified organism (principal); I21.4 Non-ST elevation (NSTEMI) myocardial infarction; J15.6 Pneumonia due to other Gram-negative bacteria; J96.01 Acute respiratory failure with hypoxia; J96.02 Acute respiratory failure with hypercapnia; J15.9 Unspecified bacterial pneumonia; E87.2 Acidosis; E11.40 Type 2 diabetes mellitus with diabetic neuropathy, unspecified; K56.7 Ileus, unspecified; I21.A1 Myocardial infarction type 2; E66.2 Morbid (severe) obesity with alveolar hypoventilation; Z68.43 Body mass index [BMI] 50.0-59.9, adult; G89.4 Chronic pain syndrome; M79.7 Fibromyalgia; Z87.01 Personal history of pneumonia (recurrent); M19.90 Unspecified osteoarthritis, unspecified site; J40 Bronchitis, not specified as acute or chronic; D64.9 Anemia, unspecified; E03.9 Hypothyroidism, unspecified; E78.5 Hyperlipidemia, unspecified; E87.6 Hypokalemia; I10 Essential (primary) hypertension; D63.8 Anemia in other chronic diseases classified elsewhere; K63.89 Other specified diseases of intestine; K27.9 Peptic ulcer, site unspecified, unspecified as acute or chronic, without hemorrhage or perforation; K20.9 Esophagitis, unspecified; K29.60 Other gastritis without bleeding; K44.9 Diaphragmatic hernia without obstruction or gangrene; I70.0 Atherosclerosis of aorta
CPT/HCPCS: 31720; 36415; 36569; 36600; 71045-TC; 74018; 80048-TC; 80053-TC; 80061-TC; 80076-TC; 80202-TC; 81000-TC; 82272-TC; 82306; 82728-TC; 82803-TC; 82962-TC; 83540-TC; 83605-TC; 83735-TC; 84100-TC; 84439-TC; 84443-TC; 84478-TC; 84484-TC; 85025-TC; 85730-TC; 87040-TC; 87081-TC; 87086-TC; 87400; 88305-TC; 88313-TC; 88342; 90732; 92526; 92611-TC; 93307-TC; 94003-TC; 94760-TC; 94762-TC; 94799-TC; 97110-TC; 97116-TC; 97530-TC; 99082-TC; A4216; A4606; C9113; J0360; J0692; J1170; J1650; J1815; J2060; J2310; J2405; J2543; J2704; J2765; J2916; J3370; J3475; J3480; J3490; J7030; J7040; J7050; J7060; Q9963; Q9967; Z7610